=== PATIENT | female | born 1955 | race Caucasian/White ===

== ENCOUNTER 2020-05-24 08:00 | Outpatient (CLI) | payer OTHER, SELFPAY | END 2020-05-24 08:01 | disposition home or self-care (01) | LOC: ANHCOVIDVC 08:00 | PROVIDERS: PCP Family Medicine | DX: Z23 Encounter for immunization (principal) | CPT/HCPCS: 0001A; 91300 ==

== ENCOUNTER 2020-06-14 07:57 | Outpatient (CLI) | payer OTHER, SELFPAY | END 2020-06-14 07:58 | disposition home or self-care (01) | LOC: ANHCOVIDVC 07:57 | PROVIDERS: PCP Family Medicine | DX: Z23 Encounter for immunization (principal) | CPT/HCPCS: 0002A; 91300 ==

== ENCOUNTER 2020-07-25 07:42 | Outpatient (RCR) | payer OTHER, SELFPAY ==
[2020-07-11 09:33] VITALS: BMI 31.8
== END 2020-08-15 10:50 | disposition home or self-care (01) ==
LOC: ANHWOC 07:42
PROVIDERS: PCP Family Medicine; Visit Provider Family Medicine
DX: M79.3 Panniculitis, unspecified (principal); L30.4 Erythema intertrigo
CPT/HCPCS: 99212; A9270; G0463

== ENCOUNTER 2020-08-27 10:30 | Emergency (ER) | payer OTHER, SELFPAY ==
[2020-08-27 10:38] VITALS: BP 146/67; PULSE 77; RESP 16; TEMP 37.1; O2SAT 98
--- NOTE | 2020-08-27 10:55 | ED.URI ---
HPI - URI/Sore Throat General Chief Complaint: Upper Respiratory Infection Stated Complaint: cough/congestion/stuffy nose/eye irritation Time Seen by Provider: 08/27/20 10:43 Source: patient and RN notes reviewed Mode of arrival: ambulatory Limitations: no limitations History of Present Illness HPI Narrative: Patient presents today with a 9-day history of cold symptoms to include sore throat, postnasal drip, dry cough couple days with congestion and sinus pressure. Over the last 2 days she has developed bilateral eye matting and thick drainage from her eyes. She has been using DayQuil, NyQuil, Mucinex, Flonase, and Zyrtec. Denies fever, denies history of COPD and asthma. History of diabetes MD elicited complaint: cough, nasal congestion and sinus pain Related Data Home Medications Medication Instructions Recorded Confirmed Adult Low Dose Aspirin 81 mg PO HS 08/27/20 08/27/20 Allergies Allergy/AdvReac Type Severity Reaction Status Date / Time amoxicillin Allergy Severe rash Verified 08/27/20 10:42 celecoxib Allergy Unknown Skin Verified 08/27/20 10:42 Reaction empagliflozin Allergy Unknown Unknown Verified 08/27/20 10:42 lisinopril Allergy Unknown Cough Verified 08/27/20 10:42 metformin Allergy Unknown Diarrhea Verified 08/27/20 10:42 sitagliptin Allergy Unknown DIARRHEA Verified 08/27/20 10:42 Review of Systems Review of Systems: Narrative: CONSTITUTIONAL: Denies body aches, fever, chills, or sweats. EYES: Denies visual changes, redness, or discharge.+ Bilateral eye matting and drainage ENT: Denies rhinorrhea, or otalgia.+ Congestion, throat, postnasal drip CARDIOVASCULAR: Denies chest pain, palpitations, or edema. RESPIRATORY: Denies dyspnea.+ Dry cough GASTROINTESTINAL: Denies abdominal pain, nausea, vomiting, or diarrhea. GENITOURINARY: Denies dysuria or hematuria. SKIN: Denies rash, itching, or wounds. MUSCULOSKELETAL: Denies back pain, joint pain, or myalgia. NEUROLOGIC: Denies headache, numbness, tingling, or weakness. PSYCH: Denies depression or anxiety. [facility] Family History Family History Father Family history of Alzheimer's disease Mother Family history of diabetes mellitus in first degree relative Patient's mother is Diabetes mellitus Family history of cardiovascular disease Family history of arthritis Family history of malignant neoplasm of breast Family history of malignant neoplasm of kidney Grandparent Hypertension Family history of malignant neoplasm Sibling Malignant neoplasm of prostate Other Cerebrovascular accident Family history of heart disease in male family member before age 55 Family history of kidney stones Social History Social History (Updated 08/13/20 @ 14:39 by Sherron Medellin [facility]) Smoking end date: 03/09/74 Alcohol intake: never Gender identity (if verbalized by the patient): Female Comments At time of signature, I have reviewed and agree with nursing past medical, surgical, social and family history unless otherwise noted. Please see nursing chart for further information. There is no relevant family history pertinent to the presenting complaint Exam Narrative: Exam Narrative: GENERAL: Well-appearing, well-nourished, and in no acute distress. HEAD: Normocephalic, atraumatic. EYES: EOMI. No redness or drainage. Conjunctivae slightly injected bilaterally, otherwise normal. No active drainage. ENT: Mucous membranes pink and moist. Nares congested. No rhinorrhea. TMs normal bilaterally. Throat normal with moderate amount of white postnasal drainage. Uvula midline. NECK: Normal AROM. Supple. No lymphadenopathy. CHEST: No respiratory distress. Clear to auscultation. HEART: Regular rate and rhythm. No murmur appreciated. Normal peripheral pulses. EXTREMITIES: Normal range of motion. No edema. SKIN: Warm, dry, no rash. Capillary refill normal. Normal skin turgor. NEURO: No focal defi
== END 2020-08-27 11:06 | disposition home or self-care (01) ==
PROVIDERS: Emergency Provider Nurse Practitioner; PCP Family Medicine
DX: J01.90 Acute sinusitis, unspecified (principal); E78.00 Pure hypercholesterolemia, unspecified; I10 Essential (primary) hypertension; K21.9 Gastro-esophageal reflux disease without esophagitis; M19.90 Unspecified osteoarthritis, unspecified site
CPT/HCPCS: 99213; G0463

== ENCOUNTER 2020-09-01 11:22 | Outpatient (CLI) | payer OTHER, SELFPAY ==
--- NOTE | ~2020-09-01 | MM_ITS ---
EXAMINATION: MM screening [facility] w [facility] HISTORY: Screening TECHNIQUE: Craniocaudal and mediolateral oblique 3-D tomosynthesis images were obtained and synthetic 2-D images were generated. CAD analysis was submitted and interpreted. COMPARISON: Comparison to multiple prior studies sequentially, with oldest reviewed study dated 11/2014. BREAST PARENCHYMAL COMPOSITION: There are scattered areas of fibroglandular density. FINDINGS: There is no evidence of suspicious mass, calcification, or architectural distortion to sugg est malignancy in either breast. There has been no suspicious interval change. IMPRESSION: 1. No mammographic evidence of malignancy. 2. Recommend routine screening mammography in one year. BI-RADS Category 1: Negative Reviewed, dictated and finalized at location A.
== END 2020-09-01 11:23 | disposition home or self-care (01) ==
LOC: ANHIMG 11:24
PROVIDERS: PCP Family Medicine; Visit Provider Family Medicine
DX: Z12.31 Encounter for screening mammogram for malignant neoplasm of breast (principal)
CPT/HCPCS: 77063; 77067

== ENCOUNTER 2021-01-30 12:43 | Outpatient (CLI) | payer OTHER, SELFPAY ==
--- NOTE | ~2021-01-30 | XR_ITS ---
EXAMINATION: XR lg joint inject/asp w image DATE: 01/30/2021 13:44 INDICATION: Left hip arthritis TECHNIQUE: A time-out was performed to verify the patient's name, date of , and procedure to b e performed. The procedure including the risks, benefits, and alternatives was discussed with the pat ient. Risks discussed included bleeding and infection. The patient understood the risks and agreed to proceed. The skin overlying the left hip joint was prepped and draped in usual sterile fashion. An esthetic was administered with 1% lidocaine subcutaneously. A 22 G needle was advanced under fluoros copic guidance into the joint. Injection of 1 mL of Omnipaque 240 confirmed intra-articular position of the needle. Subsequently, injectate consisting of 3 mL of a 2:1 mixture of 0.5% bupivacaine: 80 mg/mL Depo-Medrol for a total dosage of 80 mg Depo-Medrol was instilled. Washout of contrast was seen confirming intra-articular administration. The needle was removed and the entry site was cleaned and dressed. There were no immediate complications. Fluoroscopy exposure time was 0.1 minutes. The tota l number of images was 2. Total DAP was 0.722 mGycm^2 FINDINGS: Real-time fluoroscopy demonstrates the needle in the left hip joint. Patient's pain prior t o procedure:09/15. Patient's pain following the procedure: 06/16. IMPRESSION: 1. Left hip joint injection of local anesthetic and steroid with decrease in the patient's presenting pain. Reviewed, dictated and finalized at location A. IDE SALES INSPECTOR IMPRESSION: 1. Left hip joint injection of local anesthetic and steroid with decrease in th e patient's presenting pain.
== END 2021-01-30 12:44 | disposition home or self-care (01) ==
LOC: ANHIMG 12:48
PROVIDERS: PCP Family Medicine; Visit Provider Orthopaedic Surgery
DX: M16.12 Unilateral primary osteoarthritis, left hip (principal)
CPT/HCPCS: 20610; 77002; J1040; Q9966

== ENCOUNTER → 2021-02-09 08:08 | Outpatient (CLI) | payer OTHER, SELFPAY ==
[2021-02-09 18:55] LABS: SARS-CoV-2 RNA PCR Negative
== END ==
PROVIDERS: PCP Family Medicine; Visit Provider Physician Assistant Medical
DX: R68.89 Other general symptoms and signs (principal); Z20.822 Contact with and (suspected) exposure to COVID-19
CPT/HCPCS: C9803; U0003; U0005

== ENCOUNTER → 2021-02-15 04:13 | Outpatient (CLI) | payer OTHER, SELFPAY ==
[2021-02-15 19:27] LABS: SARS-CoV-2 RNA PCR Negative
== END ==
PROVIDERS: PCP Family Medicine; Visit Provider Family Medicine
DX: R05.9 Cough, unspecified (principal)
CPT/HCPCS: C9803; U0003; U0005

== ENCOUNTER 2021-03-20 00:25 | Day surgery (SDC) | payer OTHER, SELFPAY ==
--- NOTE | 2021-03-19 13:52 | PM.HPGS ---
History of Present Illness History of Present Illness Consent: Risks, benefits, and alternatives have been discussed and questions answered. Patient agrees to proceed with procedure. Chief complaint: neoplasm screening, hx of colon polyps Narrative: Jihan Villalta is a 65 year old female Who was referred for colon cancer screening. About 6 years ago she had removal of 2 polyps at another institution. Review of Systems Review of Systems: All systems reviewed & are unremarkable except as noted in HPI and below PMFSH Past Medical History Medical History Anxiety and depression Basal cell carcinoma of skin, unspecified Benign neoplasm of colon Breast cancer screening Chronic right hip pain Degenerative joint disease of left hip Diverticulosis of colon (without mention of hemorrhage) Dry eye Dystrophic nail Essential (primary) hypertension Fibromyalgia Glossitis Hip pain, bilateral Intertriginous dermatitis associated with moisture Irritable bowel syndrome with diarrhea Left hip pain Left knee DJD Major depressive disorder, single episode, unspecified Mixed hyperlipidemia Obesity, Class I, BMI 30-34.9 Other specified diabetes mellitus without complications Panniculitis Primary osteoarthritis of both knees Right knee DJD Urge incontinence Vulvitis Family History Family History Father Family history of Alzheimer's disease Mother Family history of diabetes mellitus in first degree relative Patient's mother is Diabetes mellitus Family history of cardiovascular disease Family history of arthritis Family history of malignant neoplasm of breast Family history of malignant neoplasm of kidney Grandparent Hypertension Family history of malignant neoplasm Sibling Malignant neoplasm of prostate Other Cerebrovascular accident Family history of heart disease in male family member before age 55 Family history of kidney stones Social History Social History Smoking status: Never smoker Smoking end date: 03/09/74 Alcohol intake: current Substance use: never Substance use type: does not use Living arrangements: with family Gender identity (if verbalized by the patient): Female Sexual Orientation (if Verbalized by the Patient): Straight or Heterosexual Spiritual care concerns: No Meds Home Medications and Allergies Home Medications Medication Instructions Recorded Confirmed Type blood sugar diagnostic #200 each 12/02/19 02/12/21 Rx blood-glucose meter #1 each 12/02/19 02/12/21 Rx lancets #200 each 12/02/19 02/12/21 Rx meloxicam 15 mg tablet 15 mg PO DAILY #90 tablet 05/14/20 03/06/21 Rx atorvastatin 20 mg tablet 20 mg PO QHS #90 tablet 08/13/20 03/06/21 Rx fluticasone propionate 50 2 spray INTRANASAL DAILY #16 g 08/13/20 03/06/21 Rx mcg/actuation nasal spray,suspension solifenacin 10 mg tablet 10 mg PO DAILY #90 tablet 08/13/20 03/06/21 Rx Adult Low Dose Aspirin 81 mg PO HS 08/27/20 03/06/21 History albuterol sulfate 90 mcg/actuation 2 inh INHALATION Q4H PRN #8.5 g 02/12/21 03/06/21 Rx aerosol inhaler Adult Probiotic 1 cap PO DAILY 03/06/21 03/06/21 History Glucosamine Chondroitin 2 cap PO DAILY 03/06/21 03/06/21 History Hair, Skin, Nails with Biotin 1 cap PO DAILY 03/06/21 03/06/21 History Steglatro 15 mg PO DAILY 03/06/21 03/06/21 History cholecalciferol (vitamin D3) 125 mcg PO DAILY 03/06/21 03/06/21 History [Vitamin D3] famotidine 40 mg PO DAILY 03/06/21 03/06/21 History fluoxetine 40 mg PO DAILY 03/06/21 03/06/21 History gabapentin 600 mg PO HS 03/06/21 03/06/21 History hydrochlorothiazide 25 mg PO DAILY 03/06/21 03/06/21 History glnxu-wy-9-vok-zhk-xdxafiu-ast 1 cap PO DAILY 03/06/21 03/06/21 History [MegaRed [place]-3 Krill Oil] magnesium oxide 400 mg PO DAILY 03/06/21 03/06/21 History mecobalamin (vitamin
[2021-03-20] MEDS: LACTATED RINGERS 1,000 ML 150 ML IV CONT (09:42)
[2021-03-20 09:44] LABS: Glucose Point of Care 134 mg/dl (65-105)
[2021-03-20 09:46] VITALS: BP 111/79; PULSE 84; RESP 18; TEMP 36.1; O2SAT 99
--- NOTE | 2021-03-20 10:24 | WPDANESEPPF ---
Anes - Initial Pre Proc Eval Procedure: Operation Date: 03/20/21 10:30 Proposed Procedures p Screening Colonoscopy - Kimani Hurtado MD Date/Time: 03/20/21 10:24 Surgeon: Kimani Hurtado MD Pre Op Diagnosis: neoplasm screening, hx of colon polyps Patient Data Age: 65 Gender: F Height: 1.7 m Weight: 86.1 kg Last Vital Signs Temp 97 F L 03/20/21 09:46 Pulse 84 03/20/21 09:46 Resp 18 03/20/21 09:46 BP 111/79 03/20/21 09:46 Pulse Ox 99 03/20/21 09:46 Allergies Allergy/AdvReac Type Severity Reaction Status Date / Time amoxicillin Allergy Severe rash Verified 03/20/21 09:44 celecoxib Allergy Intermediate Skin Verified 03/20/21 09:44 Reaction empagliflozin Allergy Intermediate Diarrhea Verified 03/20/21 09:44 lisinopril Allergy Intermediate Cough Verified 03/20/21 09:44 metformin Allergy Intermediate Diarrhea Verified 03/20/21 09:44 sitagliptin Allergy Intermediate DIARRHEA Verified 03/20/21 09:44 Home Medications Medication Instructions Recorded Confirmed Type blood sugar diagnostic #200 each 12/02/19 02/12/21 Rx blood-glucose meter #1 each 12/02/19 02/12/21 Rx lancets #200 each 12/02/19 02/12/21 Rx meloxicam 15 mg tablet 15 mg PO DAILY #90 tablet 05/14/20 03/06/21 Rx atorvastatin 20 mg tablet 20 mg PO QHS #90 tablet 08/13/20 03/06/21 Rx fluticasone propionate 50 2 spray INTRANASAL DAILY #16 g 08/13/20 03/06/21 Rx mcg/actuation nasal spray,suspension solifenacin 10 mg tablet 10 mg PO DAILY #90 tablet 08/13/20 03/06/21 Rx Adult Low Dose Aspirin 81 mg PO HS 08/27/20 03/06/21 History albuterol sulfate 90 mcg/actuation 2 inh INHALATION Q4H PRN #8.5 g 02/12/21 03/06/21 Rx aerosol inhaler Adult Probiotic 1 cap PO DAILY 03/06/21 03/06/21 History Glucosamine Chondroitin 2 cap PO DAILY 03/06/21 03/06/21 History Hair, Skin, Nails with Biotin 1 cap PO DAILY 03/06/21 03/06/21 History Steglatro 15 mg PO DAILY 03/06/21 03/06/21 History cholecalciferol (vitamin D3) 125 mcg PO DAILY 03/06/21 03/06/21 History [Vitamin D3] famotidine 40 mg PO DAILY 03/06/21 03/06/21 History fluoxetine 40 mg PO DAILY 03/06/21 03/06/21 History gabapentin 600 mg PO HS 03/06/21 03/06/21 History hydrochlorothiazide 25 mg PO DAILY 03/06/21 03/06/21 History prbyp-cr-9-jup-vxt-xoideyq-ast 1 cap PO DAILY 03/06/21 03/06/21 History [MegaRed [place]-3 Krill Oil] magnesium oxide 400 mg PO DAILY 03/06/21 03/06/21 History mecobalamin (vitamin B12) 5,000 mcg PO DAILY 03/06/21 03/06/21 History methylcellulose (laxative) 500 mg PO DAILY 03/06/21 03/06/21 History [Citrucel] mupirocin 1 applic TOPICAL TID PRN 03/06/21 03/06/21 History nystatin [Nystop] 1 applic TOPICAL PRN PRN 03/06/21 03/06/21 History pantoprazole 40 mg PO DAILY 03/06/21 03/06/21 History potassium 99 mg PO DAILY 03/06/21 03/06/21 History cetirizine 10 mg tablet 10 mg PO DAILY #90 tablet 03/13/21 Rx losartan 100 mg tablet See Rx Instructions .ROUTE 03/13/21 Rx .COMPLEX #90 tablet mirtazapine 15 mg tablet See Rx Instructions .ROUTE 03/13/21 Rx .COMPLEX #90 tablet cyclobenzaprine 10 mg tablet 10 mg PO TID PRN #30 tablet 03/18/21 Rx pilocarpine HCl 5 mg tablet 5 mg PO TID #90 tablet 03/18/21 Rx Laboratory Tests 03/20/21 09:39 POC Capillary Glucose 134 mg/dl H mg/dl (65-105) Patient hx anesthesia problems: none Family hx anesthesia problems: none Results Review: All pre-operative results and documents have been reviewed as part of the pre-operative evaluation. [facility] Past Medical History Medical History Anxiety and depression Basal cell carcinoma of skin, unspecified Benign neoplasm of colon Breast cancer screening Chronic right hip pain Degenerative joint disease of left hip Diverticulosis of colon (without mention of hemorrhage) Dry eye Dystrophic nail Essential (primary) hypertension Fibromyalgia Glossitis Hip pain, bilateral Intertriginous dermatitis associated with
[2021-03-20 10:50] VITALS: BP 106/66; PULSE 73; RESP 18; O2SAT 98
[2021-03-20 11:00] VITALS: BP 126/74; PULSE 75; RESP 17; O2SAT 100
[2021-03-20 11:10] VITALS: BP 127/75; PULSE 74; RESP 20; O2SAT 100
== END 2021-03-20 11:20 | disposition home or self-care (01) ==
PROVIDERS: PCP Family Medicine; Visit Provider Internal Medicine Gastroenterology
PROC: 0DJD8ZZ Inspection of Lower Intestinal Tract, Via Natural or Artificial Opening Endoscopic (ICD-10-PCS; CPT 45378; principal; 2021-03-20 10:30)
DX: Z12.11 Encounter for screening for malignant neoplasm of colon (principal); K57.30 Diverticulosis of large intestine without perforation or abscess without bleeding; D12.8 Benign neoplasm of rectum; K64.8 Other hemorrhoids; F41.8 Other specified anxiety disorders; I10 Essential (primary) hypertension; M79.7 Fibromyalgia; K58.0 Irritable bowel syndrome with diarrhea; E78.2 Mixed hyperlipidemia; E11.9 Type 2 diabetes mellitus without complications; N39.41 Urge incontinence; Z79.51 Long term (current) use of inhaled steroids; Z79.82 Long term (current) use of aspirin; Z79.84 Long term (current) use of oral hypoglycemic drugs
CPT/HCPCS: 45385; 82948; 88305; J2704; J7120

== ENCOUNTER 2021-03-25 07:56 | Outpatient (CLI) | payer OTHER, SELFPAY ==
--- NOTE | 2021-03-25 08:40 | ECG_ITS ---
Measurements Intervals [place] Rate: 81 P: 13 SC: 169 QRS: -18 QRSD: 93 T: 22 QT: 379 QTc: 442 Interpretive Statements SINUS RHYTHM LOW QRS VOLTAGE IN PRECORDIAL LEADS VOLTAGE CRITERIA FOR LVH BORDERLINE T WAVE ABNORMALITY- INFERIOR LEADS BORDERLINE ECG Electronically Signed On 03-25-2021 9:27:02 AVIATION OPERATIONS SPECIALIST by Benji Augustin D.O.
[2021-03-25 09:37] LABS: Basophils Percent Auto 0.5 % (0.2-1.2); Eosinophils Absolute Auto 0.1 K/mm3 (0-0.3); Eosinophils Percent Auto 1.9 % (0-4.4); Hematocrit 42.4 % (37.0-47.0); Hemoglobin 14.1 g/dL (12.0-15.0); Immature Granulocyte Absolute 0.03 K/mm3 (0.00-0.031); Immature Granulocyte Percent A 0.5 % (0-0.5); Lymphocytes Absolute Auto 1.69 K/mm3 (0.9-3.2); Lymphocytes Percent Auto 29.4 % (18.3-44.2); Mean Corpuscular HGB Conc 33.3 g/dl (32-36); Mean Corpuscular Hemoglobin 28.6 pg (26-34); Mean Platelet Volume 11.2 fl (7.4-10.4); Monocytes Absolute Auto 0.6 K/mm3 (0.1-0.6); Monocytes Percent Auto 10.1 % (2.6-8.5); Neutrophils Absolute Auto 3.3 K/mm3 (1.3-6.7); Neutrophils Percent Auto 57.6 % (45.5-73.1); Platelet Count Result 231 k/mm3 (150-375); Red Blood Count 4.93 M/mm3 (4.2-5.4); Red Cell Distribution Width 14.7 % (11.5-14.5); White Blood Count 5.7 K/mm3 (4.5-10.0)
[2021-03-25 09:47] LABS: Partial Thromboplastin Time 27.5 SECONDS (22.3-36.8); Urine Cotinine NEGATIVE
[2021-03-25 09:48] LABS: Albumin Level 4.3 g/dL (3.5-5.1); Anion Gap 13 mmol/L (8-16); Blood Urea Nitrogen 14 mg/dL (7-17); Calcium 9.1 mg/dL (8.4-10.2); Carbon Dioxide 25 mmol/L (22-30); Chloride 101 mmol/L (98-107); Estimated Glomerular Filt Rate > 60; Glucose 152 mg/dL (65-110); Potassium 3.7 mmol/L (3.4-5.0); Sodium 139 mmol/L (137-145)
[2021-03-25 10:15] LABS: Hemoglobin A1C 6.3 % (<5.7)
[2021-03-25 10:22] LABS: Add Urine Microscopic? YES; Appearance Urine Clear (Clear); Bilirubin Urine Negative (Negative); Blood Urine Negative (Negative); Color Urine Yellow (Yellow); Glucose Urine UA 3+ mg/dL (Negative); Ketones Urine Negative (Negative); Leukocyte Esterase Ur 2+ LEU/UL (Negative); Mucus Urine Rare /lpf; Nitrate Urine Negative (Negative); Protein Urine Negative (Negative); RBC Urine 0-2 /hpf (0-2); Squamous Epithelial Cell Urine Few /hpf (Few); Urobilinogen Urine Negative mg/dL (<2.0); WBC Urine 31-50 /hpf
[2021-03-25 11:11] LABS: Specific Grav Ur 1.032 (1.001-1.035)
== END 2021-03-25 07:57 | disposition home or self-care (01) ==
LOC: ANHSURGERY 08:00
PROVIDERS: PCP Family Medicine; Visit Provider Orthopaedic Surgery
DX: M17.12 Unilateral primary osteoarthritis, left knee (principal); Z01.818 Encounter for other preprocedural examination; R94.31 Abnormal electrocardiogram [ECG] [EKG]
CPT/HCPCS: 80048; 80307; 81001; 82040; 83036; 85025; 85610; 85730; 87081; 87086; 93005

== ENCOUNTER 2021-04-09 00:09 | Day surgery (SDC) | payer OTHER, SELFPAY ==
--- NOTE | 2021-03-25 07:49 | PC.NURSE ---
Report to the Outpatient Waiting Room, entrance under the green pavilion located off [facility], at time _1000_ on date _04/09/21_. OR Time: __1200__. - You and your visitor will be asked a series of questions to screen for COVID 19 for your protection. - A mask is required within the hospital. - NO visitors are allowed at this time. Patient visitors will be guided where to wait when not with patient. Preoperative COVID Testing Requirements: No COVID Test needed if: (proof is required; if not received patient will have Rapid Test prior to entry) - Patient has received COVID Vaccine at least 14 days prior to procedure date or - Patient has positive COVID test result within last 90 days of surgery date. COVID Test needed if above criteria is not met If not COVID vaccinated a COVID test must be conducted within 72 hours of surgery and patient is asked to isolate self from time of testing until procedure. You will go to the [employer] [facility] for your COVID testing. The [employer] [facility] site is located at the corner of [address] [facility]. You will only be called if COVID results are positive and your surgeon may reschedule your elective surgery date. Patients may have clear liquids (water, carbonated beverages, clear teas, apple juice) until 3 hours prior to surgery with a maximum of 20 ounces. (0900 AM) - No food from midnight until time of surgery - Infants may have breast milk until 4 hours before surgery, infant formula 6 hours prior to surgery. - Children will be allowed to drink immediately following surgery. If applicable, please bring a bottle or sippy cup to assist with drinking. Juice, water, soda, and popsicles are readily available. For infants on formula, please bring formula the day of surgery. Pacifiers are allowed. Take the following medications with a SIP of water the morning of surgery: _FLUOXETINE, INHALER IN NEEDED__ Medications to discontinue per DR. ATKINS - _ASPIRIN, MELOXICAM INSTRUCTED - ASK @ 03/25/21 APPT _ Medications to discontinue per ANESTHESIA - _ALL VITAMINS & SUPPLEMENTS - 3 DAYS PRIOR TO SURGERY, LAST DOSE TO BE TAKEN ON 04/05/21__ Please no make-up, nail eritrean, hairspray, perfume, deodorant, or body powder the day of surgery. No jewelry (including any body piercings) or valuables the day of surgery, leave them at home. Please take a shower or bath the night before, or the morning of, surgery with an antibacterial soap. Wear comfortable, loose fitting clothing. Children are encouraged to wear pajamas. - Jewelry must be removed prior to entering the operating room. Rings and piercings that are not removed may be cut off. - The hospital will not accept responsibility for valuables. - Please leave all valuables, including medications, at home the day of surgery. If you are going home after surgery, a licensed wood pile driver operator must drive you home. - NO public transportation without another adult. - We recommend that an adult stay with you for 24 hours following discharge. - We also recommend that you do not drive, make important decision, drink alcoholic beverages, or take any drugs that were not prescribed by your health care provider for at least 24 hours after your discharge time. For Pediatric surgeries, we recommend two adults accompany the child home (only one inside the building at this time). Follow any additional instructions given to you from your surgeon. Telephone instructions given to ___PT and asked if any additional questions and then verbalized understanding. Patient advised to call surgeon office or pre surgery nurse liaison [phone] if any additional questions.
[2021-03-25 08:24] VITALS: BP 124/76; PULSE 88; RESP 20; TEMP 37.3; O2SAT 96; BMI 32.1
[2021-04-09] VITALS (14 sets, daily range): BP systolic 98–144; BP diastolic 55–81; PULSE 75–91; RESP 12–18; TEMP 36.3–37.3; O2SAT 93–97
--- NOTE | ~2021-04-09 | XR_ITS ---
EXAMINATION: XR knee LT 2V EXAM DATE: 04/09/2021 17:10 INDICATION: Left knee total arthroplasty. TECHNIQUE: Portable frontal, crosstable lateral projections left knee obtained immediately following arthroplasty performed by orthopedic surgeon Julito Hearn MD. FINDINGS: Patient is status post total knee arthroplasty. The orthopedic hardware is in expected po sition. There are oscar overlying the anterior aspect of the knee. There is small amount of subcu taneous gas, gas within the knee joint space. Overlying soft tissue swelling. Correlate with proced ure note. IMPRESSION: Status post total left knee arthroplasty. Reviewed, dictated and finalized at location G. ICAL SAFETY MANAGER
[2021-04-09] MEDS: ACETAMINOPHEN 500 MG TABLET 1000 MG PO (10:04)
[2021-04-09 10:22] LABS: Glucose Point of Care 120 mg/dl (65-105)
[2021-04-09] MEDS: LACTATED RINGERS 1,000 ML 30 ML IV CONT ×2 (10:24→16:48)
[2021-04-09] MEDS: TRANEXAMIC ACID 1,000MG/ISO100 1,000 MG/100 ML BAG 200 MG IVPB (10:52)
--- NOTE | 2021-04-09 12:20 | WPDANESEPPF ---
Anes - Initial Pre Proc Eval Procedure: Operation Date: 04/09/21 12:00 Proposed Procedures p Left Total Knee Arthroplasty, Right Knee Cortisone Injection - Julito Hearn MD Date/Time: 04/09/21 12:20 Surgeon: Julito Hearn MD Pre Op Diagnosis: left knee djd, Rt knee DJD Patient Data Age: 65 Gender: F Height: 1.65 m Weight: 87.3 kg Last Vital Signs Temp 37.3 C 04/09/21 10:33 Pulse 77 04/09/21 10:33 Resp 16 04/09/21 10:33 BP 131/67 04/09/21 10:33 Pulse Ox 97 04/09/21 10:33 Allergies Allergy/AdvReac Type Severity Reaction Status Date / Time amoxicillin Allergy Severe rash Verified 04/09/21 09:59 celecoxib Allergy Intermediate Skin Verified 04/09/21 09:59 Reaction empagliflozin Allergy Intermediate Diarrhea Verified 04/09/21 09:59 lisinopril Allergy Intermediate Cough Verified 04/09/21 09:59 metformin Allergy Intermediate Diarrhea Verified 04/09/21 09:59 sitagliptin Allergy Intermediate DIARRHEA Verified 04/09/21 09:59 Home Medications Medication Instructions Recorded Confirmed Type blood sugar diagnostic #200 each 12/02/19 02/12/21 Rx blood-glucose meter #1 each 12/02/19 02/12/21 Rx lancets #200 each 12/02/19 02/12/21 Rx meloxicam 15 mg tablet 15 mg PO DAILY #90 tablet 05/14/20 04/09/21 Rx atorvastatin 20 mg tablet 20 mg PO QHS #90 tablet 08/13/20 03/25/21 Rx fluticasone propionate 50 2 spray INTRANASAL DAILY #16 g 08/13/20 03/25/21 Rx mcg/actuation nasal spray,suspension solifenacin 10 mg tablet 10 mg PO DAILY #90 tablet 08/13/20 03/25/21 Rx Adult Low Dose Aspirin 81 mg PO HS 08/27/20 03/25/21 History albuterol sulfate 90 mcg/actuation 2 inh INHALATION Q4H PRN #8.5 g 02/12/21 03/25/21 Rx aerosol inhaler Adult Probiotic 1 cap PO DAILY 03/06/21 03/25/21 History Citrucel 500 mg PO DAILY 03/06/21 03/25/21 History Glucosamine Chondroitin 2 cap PO DAILY 03/06/21 03/25/21 History Hair, Skin, Nails with Biotin 1 cap PO DAILY 03/06/21 03/25/21 History Steglatro 15 mg PO DAILY 03/06/21 03/25/21 History cholecalciferol (vitamin D3) 125 mcg PO DAILY 03/06/21 03/25/21 History [Vitamin D3] famotidine 40 mg PO DAILY 03/06/21 03/25/21 History fluoxetine 40 mg PO DAILY 03/06/21 04/09/21 History gabapentin 600 mg PO HS 03/06/21 03/25/21 History hydrochlorothiazide 25 mg PO DAILY 03/06/21 03/25/21 History bkjwr-fy-2-wcu-mel-ysxoyfr-ast 1 cap PO DAILY 03/06/21 03/25/21 History [MegaRed [place]-3 Krill Oil] magnesium oxide 400 mg PO DAILY 03/06/21 03/25/21 History mecobalamin (vitamin B12) 5,000 mcg PO DAILY 03/06/21 03/25/21 History nystatin [Nystop] 1 applic TOPICAL PRN PRN 03/06/21 03/25/21 History pantoprazole 40 mg PO DAILY 03/06/21 03/25/21 History potassium 99 mg PO DAILY 03/06/21 03/25/21 History cetirizine 10 mg tablet 10 mg PO DAILY #90 tablet 03/13/21 03/25/21 Rx cyclobenzaprine 10 mg tablet 10 mg PO TID PRN #30 tablet 03/18/21 03/25/21 Rx pilocarpine HCl 5 mg tablet 5 mg PO TID #90 tablet 03/18/21 03/25/21 Rx losartan 100 mg HS 03/25/21 03/25/21 History mirtazapine 15 mg HS 03/25/21 03/25/21 History Laboratory Tests 04/09/21 04/09/21 10:15 10:20 POC Capillary Glucose 120 mg/dl H mg/dl (65-105) Blood Type A Positive Antibody Screen Negative Patient hx anesthesia problems: none Family hx anesthesia problems: none Results Review: All pre-operative results and documents have been reviewed as part of the pre-operative evaluation. COUNT INCLUDES THE [facility] Past Medical History Medical History Anxiety and depression Basal cell carcinoma of skin, unspecified Benign neoplasm of colon Breast cancer screening Chronic right hip pain Degenerative joint disease of left hip Diverticulosis of colon (without mention of hemorrhage) Dry eye Dystrophic nail Essential (primary) hypertension Fibromyalgia Glossitis Hip pain, bilateral Intertriginous dermatitis associated with moisture Irritable bowel syndrome with d
--- NOTE | 2021-04-09 12:23 | WPDHPUPDATE1 ---
History and Physical Update Update Date/Time: 04/09/21 12:23 History and Physical has been reviewed, including an updated exam of the patient. There are NO changes in the patient's condition. Risks, benefits, and alternatives have been discussed and questions answered. Patient agrees to proceed with procedure.
--- NOTE | 2021-04-09 12:40 | WPDANESPNB ---
Anes - Peripheral Nerve Block Date/Time: 04/09/21 12:40 I have discussed with the patient/family/POA the placement of a peripheral nerve block for post-operative pain management, including associated risks, benefits, complications, and side effects. Alternative methods of post-operative analgesia were detailed. Questions were solicited and answers provided to the satisfaction of the patient/family/POA. Time-Out: A pre-procedural Time-Out was completed immediately before starting the procedure and confirmed: Patient Identification, Site, Procedure, Patient Position and the Availability of Requisite Equipment. Clinical Indications: Acute post-operative pain management requested by the operative surgeon. Nerve Block Insertion Note Anes-nerve block: adductor canal left Patient position: supine Needle: 22 gauge, stimulating, insulated echogenic needle. Needle length: 80 mm Technique: ultrasound Injectate: bupivacaine 0.5% with epi 5 mcg/ml (30) and dexamethasone (mg) (8) Observations: tolerated well Complications: none Procedure start time:: 1235 Procedure end time:: 1240
[2021-04-09] MEDS: ceFAZolin 2 GM/D5W 50 ML 2 GM/50 ML BAG IVPB ×2 (12:55→20:47)
[2021-04-09] MEDS: TRANEXAMIC ACID 1,000 MG/10 ML AMPUL 1000 MG IV PUSH (15:34)
--- NOTE | 2021-04-09 16:43 | WPDHPUPDATE1 ---
History and Physical Update Update Date/Time: 04/09/21 16:43 History and Physical has been reviewed, including an updated exam of the patient. There are NO changes in the patient's condition. Risks, benefits, and alternatives have been discussed and questions answered. Patient agrees to proceed with procedure. We also discussed the right knee djd and her request for a cortisone injection. she consented to this as well. we will proceed.
[2021-04-09 16:56] LABS: Glucose Point of Care 199 mg/dl (65-105)
[2021-04-09] MEDS: fentaNYL CITRATE INJ (*CRX) 100 MCG/2 ML VIAL 25 MCG IV PUSH ×7 (17:03→17:34)
--- NOTE | 2021-04-09 17:11 | SUR.PHASEI ---
1708 DR ATKINS AT BEDSIDE IN PACU. RT KNEE INJECTED WITH 1% LIDOCAINE HCL 5ML AND DEPOMEDROL 80MG 1ML.
--- NOTE | 2021-04-09 17:12 | W.PM.PROC2 ---
Procedure Note - Detailed Date of Procedure 04/09/21 Pre-op Diagnosis left knee djd, Rt knee DJD Post-op Diagnosis same Procedure Performed L TKA WITH PATELLA RESURFACING, RIGHT KNEE INJECTION Surgeon Julito Hearn MD Anesthesia general Description of Procedure THE LEFT KNEE WAS PREPPED AND DRAPED IN THE STERILE FASHION. THERE WAS A 10 DEGREE FLEXION CONTRACTURE. A MIDLINE SKIN INCISION WAS MADE. A MEDIAL PARAPATELLAR ARTHROTOMY WAS MADE. THE PATELLA WAS EVERTED. THERE WAS TRICOMPARTMENT DJD. THERE WAS MINIMAL PATELLA DJD. AN INTRAMEDULLARY DILIA WAS PLACED IN THE FEMUR. A DISTAL FEMORAL CUT WAS MADE IN 5 DEGREES OF VALGUS REMOVING APPROXIMATELY 9 MM OF BONE FROM THE DISTAL FEMUR. THE FEMUR WAS SIZED TO 65. A 65 FEMORAL CUTTING BLOCK WAS PLACED IN 3 DEGREES OF EXTERNAL ROTATION AND IN ALIGNMENT WITH PHIL'S LINE AND THE TRANSEPICONDYLAR AXIS. ANTERIOR POSTERIOR AND CHAMFER CUTS WERE MADE. THE CUTS WERE EXCELLENT. NEXT AN INTRAMEDULLARY CUTTING GUIDE WAS PLACED IN THE TIBIA. A TRANS TIBIAL CUT WAS MADE ALONG THE LONG AXIS OF THE TIBIA. APPROXIMATELY 10 MM OF BONE WAS REMOVED FROM THE HIGH SIDE OF THE TIBIA. THE TIBIA WAS THEN PLANED TO A SMOOTH SURFACE. POSTERIOR FEMORAL OSTEOPHYTES WERE REMOVED FROM THE FEMORAL CONDYLES. A 71 TIBIAL TRIAL WAS PLACED IN ALIGNMENT WITH THE 1/3 MEDIAL ASPECT OF THE TIBIAL TUBERCLE. THEN A 65 FEMORAL TRIAL COMPONENT WAS PLACED. BOTH HAD EXCELLENT FITS. EVENTUALLY A 12 MM POLYETHYLENE TRIAL COMPONENT WAS PLACED. THE PATELLA THEN WAS RESURFACED MAKING A 5 MM CUT OFF OF THE PATELLA SURFACE IN THE STANDARD FASHION THEN A 31 BY 6.8 PATELLA TRIAL WHICH WAS PLACED AND MEDIALIZED ON THE PATELLA. THE KNEE WAS TAKEN THROUGH A RANGE OF MOTION. THE KNEE CAME OUT TO FULL EXTENSION. THERE WAS NO ABNORMAL TILT TO THE PATELLA. THERE WAS GOOD A/P AND VARUS/VALGUS STABILITY. THERE WAS NO EXCESSIVE ROLL BACK WITH FLEXION. THE TRIAL COMPONENTS WERE REMOVED. THEN A 65 FEMORAL COMPONENT AND 71 TIBIAL COMPONENT WITH A 12 POLYETHYLENE AND A 31 BY 6.8 PATELLA COMPONENT WERE CEMENTED INTO PLACE. ONCE THE CEMENT WAS HARD THE KNEE WAS TAKEN THROUGH A ROM AGAIN AND FOUND TO BE STABLE WITH NO PATELLA TILT NO EXCESSIVE ROLL BACK WITH FLEXION AND GOOD STABILITY WITH COMPLETE AND FULL EXTENSION. THE KNEE WAS IRRIGATED WITH STERILE BETADINE AND WATER FOR ABOUT 3 MINUTES. THE BLEEDERS WERE CAUTERIZED. THE ARTHROTOMY WAS REPAIRED WITH NUMBER 1 VICRYL. THE SUB CUTANEOUS LAYER WITH 2-0 VICRYL AND THE SKIN WITH GABRIEL. THE WOUND WAS WASHED AND A STERILE DRESSING WAS APPLIED. PATIENT WAS EXTUBATED. ONCE SHE WAS ALERT AND ORIENTED THE RIGHT KNEE WAS PREPPED STERILE AND AN INJECTION OF 5 CC OF LIDOCAINE 1% AND 1 CC OF DEPO MEDROL 80 MG WAS INJECTED INTO THE RIGHT KNEE JOINT. THE PATIENT TOLERATED BOTH PROCEDURES WELL. Estimated Blood Loss -150.0 Pathology none sent Complications No immediate complications Condition stable Disposition PACU
[2021-04-09] MEDS: HYDROmorphone HCL INJ (*CRX) 1 MG/ML SYR 0.5 MG IV PUSH ×2 (17:57→18:07)
--- NOTE | 2021-04-09 18:30 | PC.NURSE ---
This patient, Jihan Villalta, was admitted to [place] [address] at 1830. Patient oriented to hospital policies and general routines including ID bracelet, bed and alarms, visiting hours, pain management, procedures, bathroom and other care routines, personal items, smoking policy, room service/diet, and visiting hours. Information on how to activate the Rapid Response Team has been discussed. Patient encouraged to report perceived risks to care and to ask questions if they do not understand what they are told or what they should do.
[2021-04-09] MEDS: SODIUM CHLORIDE 0.9% IV 1,000 ML 125 ML IV CONT (18:43)
[2021-04-09] MEDS: LOSARTAN POTASSIUM 100 MG TABLET BY MOUTH (20:46)
[2021-04-09] MEDS: ASPIRIN 325 MG ENTERIC TABLET PO (20:46)
[2021-04-09] MEDS: ATORVASTATIN 20 MG TABLET PO (20:47)
[2021-04-09] MEDS: oxyCODONE/ACETAMINOPHEN (*CRX) 5-325 MG TABLET 1 TABLET PO (20:57)
[2021-04-09] MEDS: MIRTAZAPINE 15 MG TABLET BY MOUTH (21:54)
[2021-04-09 21:57] LABS: Glucose Point of Care 184 mg/dl (65-105)
[2021-04-10] MEDS: oxyCODONE/ACETAMINOPHEN (*CRX) 5-325 MG TABLET 1 TABLET PO (01:53)
[2021-04-10] MEDS: ceFAZolin 2 GM/D5W 50 ML 2 GM/50 ML BAG IVPB ×2 (04:04→12:04)
[2021-04-10 04:11] VITALS: BP 90/53; PULSE 72; RESP 16; TEMP 36.4; O2SAT 92
[2021-04-10 05:30] LABS: Basophils Percent Auto 0.2 % (0.2-1.2); Hematocrit 32.3 % (37.0-47.0); Hemoglobin 10.8 g/dL (12.0-15.0); Immature Granulocyte Absolute 0.04 K/mm3 (0.00-0.031); Immature Granulocyte Percent A 0.3 % (0-0.5); Lymphocytes Absolute Auto 1.17 K/mm3 (0.9-3.2); Lymphocytes Percent Auto 10.2 % (18.3-44.2); Mean Corpuscular HGB Conc 33.4 g/dl (32-36); Mean Corpuscular Hemoglobin 29.1 pg (26-34); Mean Corpuscular Volume 87.1 fl (80-100); Mean Platelet Volume 10.7 fl (7.4-10.4); Monocytes Percent Auto 8.9 % (2.6-8.5); Neutrophils Absolute Auto 9.3 K/mm3 (1.3-6.7); Neutrophils Percent Auto 80.4 % (45.5-73.1); Platelet Count Result 169 k/mm3 (150-375); Red Blood Count 3.71 M/mm3 (4.2-5.4); Red Cell Distribution Width 14.5 % (11.5-14.5); White Blood Count 11.5 K/mm3 (4.5-10.0)
[2021-04-10 05:37] LABS: Anion Gap 3 mmol/L (8-16); Blood Urea Nitrogen 17 mg/dL (7-17); Calcium 8.4 mg/dL (8.4-10.2); Carbon Dioxide 28 mmol/L (22-30); Chloride 105 mmol/L (98-107); Estimated CRCL calculation 76 ml/min; Estimated Glomerular Filt Rate > 60; Glucose 122 mg/dL (65-110); Potassium 3.1 mmol/L (3.4-5.0); Sodium 136 mmol/L (137-145)
[2021-04-10] MEDS: oxyCODONE HCL (*CRX) 2.5 MG TAB IR 7.5 MG PO ×2 (07:56→12:20)
[2021-04-10 08:07] LABS: Glucose Point of Care 125 mg/dl (65-105)
[2021-04-10 08:29] VITALS: BP 94/54; PULSE 77; RESP 16; TEMP 36.6; O2SAT 99
[2021-04-10] MEDS: ASPIRIN 325 MG ENTERIC TABLET PO (09:41)
[2021-04-10] MEDS: SENNA/DOCUSATE SODIUM TABLET 2 TAB PO (09:42)
[2021-04-10] MEDS: CHOLECALCIFEROL 1,000 UNITS TABLET 5000 UNITS PO (09:42)
[2021-04-10] MEDS: FAMOTIDINE 20 MG TABLET 40 MG PO (09:43)
[2021-04-10] MEDS: FLUTICASONE PROPIONATE 0.05% NA SPR 16 GM BTL (*BKC) 2 SPRAY NASAL (09:45)
[2021-04-10] MEDS: FLUoxetine HCL 20 MG CAPSULE 40 MG PO (09:45)
[2021-04-10] MEDS: hydroCHLOROthiazide 25 MG TABLET PO (09:45)
[2021-04-10] MEDS: PANTOPRAZOLE 40 MG TABLET PO (09:46)
[2021-04-10] MEDS: LORATADINE 10 MG TABLET PO (09:46)
[2021-04-10] MEDS: diazePAM (*CRX) 5 MG TABLET PO (09:55)
--- NOTE | 2021-04-10 10:03 | PC.NURSE ---
LEFT MESSAGE FOR PHARMACIST REGARDING MISSING MEDS
[2021-04-10] MEDS: SOLIFENACIN 5 MG TABLET 10 MG PO (12:05)
--- NOTE | 2021-04-10 12:20 | PC.NURSE ---
DR ATKINS CALLED. HE WROTE FOR DISCHARGE ORDERS. NOTIFIED HIM OF PT WALKING WITH THERAPIST THIS AM AND HEARD AND FELT A POP IN THE KNEE WITH INCREASED PAIN. OXYCODONE DID HELP PT. DR ATKINS STATES PT MAY GO HOME TODAY.
[2021-04-10 13:21] LABS: Glucose Point of Care 108 mg/dl (65-105)
--- NOTE | 2021-04-10 14:19 | PC.NURSE ---
PT AWAKE AND ALERT. STATES PAIN 09/15. PT ATE FULL LUNCH. STATES SHE IS READY TO GO HOME.
[2021-04-10 14:25] VITALS: BP 109/61; PULSE 87; RESP 18; TEMP 37.3; O2SAT 96
--- NOTE | 2021-04-10 15:02 | PC.NURSE ---
PT IS DRESSED AND PACKED. READY FOR DISCHARGE. WAITING ON RIDE TO ARRIVE, WEATHER IS SNOWY, WILL TAKE SOME TIME PER PT.
--- NOTE | 2021-04-10 16:01 | PC.NURSE ---
1350; PT AWAKE AND ALERT. RIDE HERE. PT PACKED AND READY. STATES PAIN 10/16. ASKED PT IF SHE WANTED TO STAY DUE TO PAIN, PT STATES NO, SHE IS READY TO GO HOME.
== END 2021-04-10 15:55 | disposition home health service (06) ==
LOC: ANHSURGERY 17:39 → ANHSUROVER 04-10 10:28
PROVIDERS: PCP Family Medicine; Visit Provider Orthopaedic Surgery
PROC: (CPT 27447; principal; 2021-04-09 12:00)
DX: M17.0 Bilateral primary osteoarthritis of knee (principal); G89.18 Other acute postprocedural pain; I10 Essential (primary) hypertension; E11.9 Type 2 diabetes mellitus without complications; F41.8 Other specified anxiety disorders; M79.7 Fibromyalgia; K58.0 Irritable bowel syndrome with diarrhea; E78.2 Mixed hyperlipidemia; Z87.891 Personal history of nicotine dependence; E66.9 Obesity, unspecified; Z68.32 Body mass index [BMI] 32.0-32.9, adult; Z79.51 Long term (current) use of inhaled steroids; Z79.82 Long term (current) use of aspirin; Z79.84 Long term (current) use of oral hypoglycemic drugs
CPT/HCPCS: 27447; 20610; 64447; 36415; 73560; 80048; 82948; 85025; 86850; 86900; 86901; 97110; 97116; 97161; 97165; 97530; A9270; C1713; C1776; J0171; J0690; J1040; J1100; J1170; J1885; J2250; J2270; J2795; J3010; J3370; J7030; J7120

== ENCOUNTER 2021-06-11 09:30 | Outpatient (RCR) | payer OTHER, SELFPAY ==
--- NOTE | 2021-05-07 13:28 | PTOPEVAL ---
PHYSICAL THERAPY EVALUATION AND PLAN OF CARE Thank you for referring Jihan Villalta to [facility].? The patient is scheduled to be seen for therapy? _2x/week for 3 weeks. Please review, sign, date and return this plan of care TROY. I agree with and certify that the following plan of care is medically necessary. Referring Physician Date Attending Provider: Julito Hearn MD Evaluation Outpatient Past Medical History Neurological History Hx Neurological Disorders No Significant History Cardiovascular History Hx Hypercholesterolemia Yes Hx Hypertension Yes Respiratory History Hx Bronchitis Yes: TRIGGERED BY ALLERGIES Hx Pneumonia Yes Hx Other Respiratory Disorders Yes: PRN inhaler if she gets bronchitis Gastrointestinal History Hx Diverticulitis Yes Hx Diverticulosis Yes Hx Gastroesophageal Reflux Disease Yes Hx Polyps Yes Genitourinary History Hx Kidney Stones Yes Hx Other Genitourinary Disorders Yes: urge incontinence-takes medications Musculoskeletal History Hx Back Pain Yes Hematological History Hx Hematological Disorders No Significant History Endocrine History Hx Diabetes Yes: last A1C 6.0 05/04/20, PRE -DM HEENT History Hx Other HEENT Disorders Yes: GLASSES Integumentary History Hx Other Skin Disorders Yes: PT STATES OCCASIONAL RASH TO SKIN FOLD OF ABD-CLEAR AT THIS TIME PER PT Reproductive History Hx Section Yes: X2 Hx Post Menopausal Yes Psychosocial History Hx Depression Yes Pain History Has Past Pain Affected Your Daily Life Yes: GENERALIZED ALL OVER- KNEES, HIPS AND BACK Anesthesia History Hx Post-Op Nausea/Vomiting Yes Other History Hx Cancer Yes: basal cell skin cancer removed Diagnosis left TKA Onset 04/09/21 Subjective Information Participated in home health Query Text:As Reported By Patient/ therapy immediately after Family surgery. States she has experienced a couple of loud painful pops in the back and lateral side of the knee that the surgeon is aware of stating it is scar tissue. States that the swelling is also bothersome. Walking with a walker today and brought a cane to use. Tells me that she
--- NOTE | 2021-06-11 10:05 | PTOPEVAL ---
PHYSICAL THERAPY DISCHARGE NOTE Thank you for referring Jihan Villalta to [facility]. Please review, sign, date and return this plan of care TROY. I agree with and certify that the following plan of care is medically necessary. Referring Physician Date Attending Provider: Julito Hearn MD Discharge Diagnosis left TKA Onset 04/09/21 Subjective Information Came back from vacation to the Query Text:As Reported By Patient/ beach. States that she did Family experience swelling at the end of the day and she had increased pain at the end of the day. She is 9 wks post op today. Self Report Pain Assessment Left Knee(s) Reported Pain Level 4 Pain Description Aching Pain Frequency Acute,Continuous Pain Score Pain Score 4: Self Report Interventions Used Interventions Used By Clinicians Exercise Lower Extremity Range of Motion Knee Range of Motion Left Knee Flexion Range of Motion - Active 128 Knee Extension Range of Motion - Active 0 Query Text: Lower Extremity Muscle Strength Testing Hip Strength Left Hip Flexion Strength 5 Normal Hip Abduction Strength 5 Normal Knee Strength Left Knee Flexion Strength 4 Good Knee Extension Strength 5 Normal Gait Assessment Gait Pattern Assessment Gait Pattern No Deviations/Normal Other Gait Observations slow and thoughtful gait pattern; normal mechanics Stair Climbing Assessment Stair Climbing Assessment Stair Climbing Assistive Devices Railings Weight Bearing Status - Left Full Weight Bearing Status - Right Full Maintains Weight Bearing Status Yes Technique Alternating Steps Stair Climbing Direction Both Up and Down Stair Climbing Ability Independent PT Clinical Summary Jihan is now 9 weeks s/p left TKA. She demonstrates normal knee ROM and good quad strength. She does have some weakness to the left hamstring and we discussed exercises to continue strengthening and why strengthening is important for further progress. She is independent in gait, stair climbing, and functional tasks and independent in HEP. She does have a small scab that persists mid incision site.
== END 2021-06-12 11:03 | disposition home or self-care (01) ==
LOC: ANHPT 09:30
PROVIDERS: PCP Family Medicine; Visit Provider Orthopaedic Surgery
DX: Z47.1 Aftercare following joint replacement surgery (principal); Z96.652 Presence of left artificial knee joint
CPT/HCPCS: 97110; 97112; 97140; 97162; 97530

== ENCOUNTER 2021-07-08 10:39 | Outpatient (CLI) | payer OTHER, SELFPAY ==
--- NOTE | ~2021-07-08 | XR_ITS ---
EXAMINATION: XR lg joint inject/asp w image DATE: 07/08/2021 11:38 INDICATION: Left hip arthritis TECHNIQUE: A time-out was performed to verify the patient's name, date of , and procedure to b e performed. The procedure including the risks, benefits, and alternatives was discussed with the pat ient. Risks discussed included bleeding and infection. The patient understood the risks and agreed to proceed. The skin overlying the left hip joint was prepped and draped in usual sterile fashion. An esthetic was administered with 1% lidocaine subcutaneously. A 22 G needle was advanced under fluoros copic guidance into the joint. Injection of 1 mL of Omnipaque 240 confirmed intra-articular position of the needle. Subsequently, injectate consisting of 4 mL of a 1:1 mixture of 40 mg/mL Depo-Medrol and 0.5% bupivacaine for a total dose of 80 mg Depo-Medrol was instilled. Washout of contrast was see n confirming intra-articular administration. The needle was removed and the entry site was cleaned an d dressed. There were no immediate complications. Fluoroscopy exposure time was 0.1 minutes. The tot al number of images was 2. FINDINGS: Real-time fluoroscopy demonstrates the needle in the left hip joint. Patient's pain prior t o procedure:09/15. Patient's pain following the procedure: 06/16. IMPRESSION: 1. Successful left hip joint injection of local anesthetic and steroid with decrease in the patient's presenting pain. Reviewed, dictated and finalized at location A. IMPRESSION: 1. Successful left hip joint injection of local anesthetic and steroid with dec rease in the patient's presenting pain.
== END 2021-07-08 10:40 | disposition home or self-care (01) ==
PROVIDERS: PCP Family Medicine; Visit Provider Orthopaedic Surgery
DX: M16.12 Unilateral primary osteoarthritis, left hip (principal)
CPT/HCPCS: 20610; 77002; J1030; Q9966

== ENCOUNTER 2021-10-22 09:53 | Outpatient (CLI) | payer MEDICARE, SELFPAY ==
[2021-10-22 11:41] LABS: Basophils Percent Auto 0.4 % (0.2-1.2); Eosinophils Absolute Auto 0.1 K/mm3 (0-0.3); Eosinophils Percent Auto 1.2 % (0-4.4); Hematocrit 40.7 % (37.0-47.0); Immature Granulocyte Absolute 0.03 K/mm3 (0.00-0.031); Immature Granulocyte Percent A 0.4 % (0-0.5); Lymphocytes Absolute Auto 1.66 K/mm3 (0.9-3.2); Lymphocytes Percent Auto 22.9 % (18.3-44.2); Mean Corpuscular HGB Conc 31.9 g/dl (32-36); Mean Corpuscular Hemoglobin 27.9 pg (26-34); Mean Corpuscular Volume 87.3 fl (80-100); Monocytes Absolute Auto 0.7 K/mm3 (0.1-0.6); Neutrophils Absolute Auto 4.8 K/mm3 (1.3-6.7); Neutrophils Percent Auto 66.1 % (45.5-73.1); Platelet Count Result 261 k/mm3 (150-375); Red Blood Count 4.66 M/mm3 (4.2-5.4); White Blood Count 7.2 K/mm3 (4.5-10.0)
[2021-10-22 11:43] LABS: Urine Cotinine NEGATIVE
[2021-10-22 11:45] LABS: Prothrombin Time 12.8 Seconds (11.1-14.7)
[2021-10-22 11:46] LABS: Partial Thromboplastin Time 26.4 SECONDS (22.3-36.8)
[2021-10-22 11:48] LABS: Appearance Urine Clear (Clear); Bilirubin Urine Negative (Negative); Blood Urine Negative (Negative); Color Urine Yellow (Yellow); Glucose Urine UA 3+ mg/dL (Negative); Ketones Urine Trace mg/dL (Negative); Leukocyte Esterase Ur Negative LEU/UL (Negative); Nitrate Urine Negative (Negative); Protein Urine Trace mg/dL (Negative); Specific Grav Ur 1.025 (1.001-1.035); Urobilinogen Urine 0.2 mg/dL (<2.0)
[2021-10-22 11:48] LABS: Albumin Level 4.6 g/dL (3.5-5.1); Anion Gap 10 mmol/L (8-16); Blood Urea Nitrogen 18 mg/dL (7-17); Calcium 9.1 mg/dL (8.4-10.2); Carbon Dioxide 27 mmol/L (22-30); Chloride 103 mmol/L (98-107); Estimated Glomerular Filt Rate > 60; Glucose 121 mg/dL (65-110); Potassium 4.2 mmol/L (3.4-5.0); Sodium 140 mmol/L (137-145)
[2021-10-22 11:59] LABS: Mucus Urine Rare /lpf; Squamous Epithelial Cell Urine Rare /hpf (Few)
[2021-10-22 12:03] LABS: Add Urine Microscopic? YES
== END 2021-10-22 09:54 | disposition home or self-care (01) ==
LOC: ANHSURGERY 10:06
PROVIDERS: PCP Family Medicine; Visit Provider Orthopaedic Surgery
DX: M16.12 Unilateral primary osteoarthritis, left hip (principal); Z01.818 Encounter for other preprocedural examination
CPT/HCPCS: 80048; 80307; 81001; 82040; 85025; 85610; 85730; 86850; 86900; 86901; 87081

== ENCOUNTER 2021-10-25 09:44 | Outpatient (CLI) | payer MEDICARE, SELFPAY ==
--- NOTE | 2021-10-25 09:50 | EST_ITS ---
Patient Info Name: Jihan Villalta Age: 66 years : 1955 Gender: Female Ht: 65 in Wt: 202 lbs BSA: 2.09 m2 HR: 86 bpm BP: 133 / 65 mmHg Heart Rhythm: Sinus Rhythm Exam Date: 10/25/2021 10:30 AM Exam Location: [facility] Stress Patient Status: Outpatient Admit Date: 10/25/2021 Staff Ordering Physician: Gael Soriano MD Mortgage Banker: Megan Huff RDCS Attending Provider: Gael Soriano MD Exam Type: CA stress echo Study Info Indications R06.00 - Dyspnea, unspecified Treadmill exercise stress echocardiogram is performed. Summary 1. 1. Negative Mychal exercise stress test for ischemic ST changes by ECG criteria. 2. 2. Reduced functional capacity, achieving 7 METs of workload. 3. 3. Hypertensive response to exercise. 4. 4. Appropriate HR response to exercise. 5. 5. Appropriate HR recovery at 1 minute post exercise. 6. 6. Negative stress echocardiogram for ischemia by wall motion analysis. 7. 7. Patient informed of the above results. Stress Echo Findings Left Ventricle Appropriate increase in LV endocardial thickening with systole. Appropriate augmentation of contractility with systole. No wall motion abnormality. Left Ventricle Normal LV systolic function, no wall motion abnormality. Protocol: Mychal Stress ECG Details Stage: REST Duration (min): 0 min : 56 sec Speed (mph): 0.0 Grade (%): 0 HR (bpm): 87 SBP (mmHg): 133 DBP (mmHg): 65 METS: --- Stage: REST Duration (min): 14 min : 1 sec Speed (mph): 0.0 Grade (%): 0 HR (bpm): 89 SBP (mmHg): 133 DBP (mmHg): 65 METS: --- Stage: STAGE 1 Duration (min): 1 min : 0 sec Speed (mph): 1.7 Grade (%): 10 HR (bpm): 93 SBP (mmHg): 133 DBP (mmHg): 65 METS: --- Stage: STAGE 1 Duration (min): 2 min : 0 sec Speed (mph): 1.7 Grade (%): 10 HR (bpm): 108 SBP (mmHg): 133 DBP (mmHg): 65 METS: --- Stage: STAGE 1 Duration (min): 3 min : 0 sec Speed (mph): 1.7 Grade (%): 10 HR (bpm): 122 SBP (mmHg): 140 DBP (mmHg): 41 METS: --- Stage: STAGE 2 Duration (min): 1 min : 0 sec Speed (mph): 2.5 Grade (%): 12 HR (bpm): 122 SBP (mmHg): 140 DBP (mmHg): 41 METS: --- Stage: STAGE 2 Duration (min): 1 min : 33 sec Speed (mph): 0.0 Grade (%): 0 HR (bpm): 133 SBP (mmHg): 140 DBP (mmHg): 41 METS: --- Stage: RECOVERY Duration (min): 0 min : 26 sec Speed (mph): 0.0 Grade (%): 0 HR (bpm): 85 SBP (mmHg): 171 DBP (mmHg): 48 METS: --- Stage: RECOVERY Duration (min): 1 min : 26 sec Speed (mph): 0.0 Grade (%): 0 HR (bpm): 111 SBP (mmHg): 171 DBP (mmHg): 48 METS: --- Stage: RECOVERY Duration (min): 2 min : 26 sec Speed (mph): 0.0 Grade (%): 0 HR (bpm): 99 SBP (mmHg): 171 DBP (mmHg): 48 METS: --- Stage: RECOVERY Duration (min): 3 min : 6 sec Speed (mph): 0.0 Grade (%): 0
== END 2021-10-25 09:45 | disposition home or self-care (01) ==
LOC: ANHCARD 09:48
PROVIDERS: PCP Family Medicine; Visit Provider Family Medicine
DX: R53.83 Other fatigue (principal); R06.00 Dyspnea, unspecified
CPT/HCPCS: 93351

== ENCOUNTER 2021-10-28 09:47 | Outpatient (CLI) | payer MEDICARE, SELFPAY ==
[2021-10-28 11:37] LABS: Appearance Urine Clear (Clear); Bilirubin Urine Negative (Negative); Blood Urine Negative (Negative); Color Urine Yellow (Yellow); Glucose Urine UA 2+ mg/dL (Negative); Ketones Urine Negative (Negative); Leukocyte Esterase Ur Negative LEU/UL (Negative); Nitrate Urine Negative (Negative); Protein Urine Negative (Negative); Specific Grav Ur 1.015 (1.001-1.035); Urobilinogen Urine 0.2 mg/dL (<2.0); pH Urine 5.5 (5.0-9.0)
[2021-10-28 11:48] LABS: Mucus Urine Rare /lpf; RBC Urine 0-2 /hpf (0-2); Squamous Epithelial Cell Urine Rare /hpf (Few)
[2021-10-28 11:50] LABS: Add Urine Microscopic? YES
--- NOTE | 2021-10-30 11:14 | IDPHARM ---
Subjective Pharmacy was consulted by {Provider} regarding infectious diseases for Jihan Villalta. Jihan Villalta is a 66 year old F with concerns regarding operative antibiotics and a potential UTI Background The patient had received levofloxacin and cefazolin during this time. The patient's urine culture resulted in an E coli resistant to cefazolin and levofloxacin. The MRSA screening obtained in the prior weeks was negative. Assessment/Recommendation/Discussion Operative antibiotics are predominantly looking to cover common skin pathogens without requiring coverage for MRSA per discussion with provider. Ceftriaxone 2g daily likely covers the skin bugs and does cover the urinary pathogen. Another 3rd generation cephalosporin is cefdinir which, if CrCl >30 mL/min, can be dosed as a 300 mg BID to help with UTI coverage for when oral therapy is appropriate if the patient tolerates ceftriaxone therapy well. Thank you for the interesting consult. Rony Salinas, PharmD Infectious Disease/Antimicrobial Stewardship Pharmacist 10/30/21; 2025
== END 2021-10-28 09:48 | disposition home or self-care (01) ==
PROVIDERS: PCP Family Medicine; Visit Provider Nurse Practitioner Family
DX: Z01.818 Encounter for other preprocedural examination (principal); N39.0 Urinary tract infection, site not specified
CPT/HCPCS: 81001; 87077; 87086; 87186

== ENCOUNTER 2021-10-30 00:39 | Day surgery (SDC) | payer MEDICARE, SELFPAY ==
[2021-10-22 10:15] VITALS: BMI 34.0
--- NOTE | 2021-10-22 10:47 | PC.NURSE ---
Report to the Outpatient Waiting Room, entrance under the green pavilion located off [facility], at time _0600 on date _10/30/21 . OR Time: __30 . - You and your visitor will be asked to self-screen and do not enter if you have any COVID symptoms. - Only one visitor and NO children visitors are allowed at this time. - The patient visitor is requested to leave or wait in car when not with patient due to restrictions. - A mask is required within the hospital. Patients may have clear liquids (water, carbonated beverages, clear teas, apple juice) until 3 hours prior to surgery with a maximum of 20 ounces. - No food from midnight until time of surgery - Infants may have breast milk until 4 hours before surgery, infant formula 6 hours prior to surgery. - Children will be allowed to drink immediately following surgery. If applicable, please bring a bottle or sippy cup to assist with drinking. Juice, water, soda, and popsicles are readily available. For infants on formula, please bring formula the day of surgery. Pacifiers are allowed. Take the following medications with a SIP of water the morning of surgery: ___FLUOXETINE Medications to discontinue per physician _ASPIRIN/MELOXICAM PER DR ATKINS, ALL VITAMINS AND SUPPLEMENTS 3 DAYS PRE OP Date to take last dose__10/26/21 Please no make-up, nail cay[place] islander, hairspray, perfume, deodorant, or body powder the day of surgery. No jewelry (including any body piercings) or valuables the day of surgery, leave them at home. Please take a shower or bath the night before, or the morning of, surgery with an antibacterial soap. Wear comfortable, loose fitting clothing. Children are encouraged to wear pajamas. - Jewelry must be removed prior to entering the operating room. Rings and piercings that are not removed may be cut off. - The hospital will not accept responsibility for valuables. - Please leave all valuables, including medications, at home the day of surgery. If you are going home after surgery, a licensed transport driver must drive you home. - NO public transportation without another adult. - We recommend that an adult stay with you for 24 hours following discharge. - We also recommend that you do not drive, make important decision, drink alcoholic beverages, or take any drugs that were not prescribed by your health care provider for at least 24 hours after your discharge time. For Pediatric surgeries, we recommend two adults accompany the child home (only one inside the building at this time). Follow any additional instructions given to you from your surgeon. If you or anyone in your household have experienced Covid symptoms in the past week, please notify your surgeon or the nurse liaison at the phone number below for possible testing. VERBAL AND WRITTEN instructions given to ___PATIENT and asked if any additional questions and then verbalized understanding. Patient advised to call surgeon office or pre surgery nurse liaison [phone] if any additional questions.
[2021-10-22 11:07] VITALS: BP 122/68; PULSE 76; RESP 18; TEMP 37.3; O2SAT 97
--- NOTE | 2021-10-29 12:08 | WPDANESEPPF ---
Anes - Initial Pre Proc Eval Procedure: Operation Date: 10/30/21 07:30 Proposed Procedures p Left Total Hip Arthroplasty and Right Knee Cortisone Injection - Julito Hearn MD Date/Time: 10/29/21 12:08 Surgeon: Julito Hearn MD Pre Op Diagnosis: left hip djd, Rt Knee DJD Patient Data Age: 66 Gender: F Height: 1.65 m Weight: 92.6 kg Last Vital Signs Temp 37.3 C 10/22/21 11:07 Pulse 76 10/22/21 11:07 Resp 18 10/22/21 11:07 BP 122/68 10/22/21 11:07 Pulse Ox 97 10/22/21 11:07 O2 Del Method Room Air 10/22/21 11:07 Allergies Allergy/AdvReac Type Severity Reaction Status Date / Time amoxicillin AdvReac Severe rash Verified 10/30/21 06:09 celecoxib AdvReac Intermediate Skin Verified 10/30/21 06:09 Reaction empagliflozin AdvReac Intermediate Diarrhea Verified 10/29/21 11:56 lisinopril AdvReac Intermediate Cough Verified 10/29/21 11:56 metformin AdvReac Intermediate Diarrhea Verified 10/29/21 11:56 sitagliptin AdvReac Intermediate DIARRHEA Verified 10/29/21 11:56 Home Medications Medication Instructions Recorded Confirmed Type blood sugar diagnostic (OneTouch #200 ea 12/02/19 08/14/21 Rx Verio test strips) blood-glucose meter (OneTouch #1 ea 12/02/19 08/14/21 Rx Verio Flex Start kit) lancets (OneTouch UltraSoft #200 ea 12/02/19 08/14/21 Rx Lancets) fluticasone propionate 50 2 spray intranasal DAILY #16 grams 08/13/20 10/30/21 Rx mcg/actuation nasal spray,suspension (Flonase Allergy Relief) Adult Probiotic 1 cap PO DAILY 03/06/21 10/30/21 History Glucosamine Chondroitin 2 cap PO DAILY 03/06/21 10/30/21 History Hair, Skin, Nails with Biotin 1 cap PO DAILY 03/06/21 10/30/21 History cholecalciferol (vitamin D3) 125 125 mcg PO DAILY 03/06/21 10/30/21 History mcg (5,000 unit) tablet (Vitamin D3) krill 500 mg-omega 3 115 mg-dha 30 1 cap PO DAILY 03/06/21 10/30/21 History mg-epa 64 [id number] capsule (MegaRed Elfrida-3 Krill Oil) magnesium oxide 400 mg PO DAILY 03/06/21 10/30/21 History mecobalamin (vitamin B12) 5,000 5,000 mcg PO DAILY 03/06/21 10/30/21 History mcg lozenge methylcellulose (laxative) 500 mg 500 mg PO DAILY 03/06/21 10/30/21 History tablet (Citrucel) nystatin 100,000 unit/gram topical 1 applic topical PRN PRN RASH 03/06/21 10/30/21 History powder (Nystop) potassium 99 mg tablet 99 mg PO DAILY 03/06/21 10/30/21 History cetirizine 10 mg tablet 10 mg PO DAILY #90 tabs 03/13/21 10/30/21 Rx cyclobenzaprine 10 mg tablet 10 mg PO TID PRN muscle spasm #30 03/18/21 10/30/21 Rx tabs mirtazapine 15 mg tablet 15 mg PO HS 03/25/21 10/30/21 History fluoxetine 40 mg capsule See Rx Instructions .Route 04/26/21 10/30/21 Rx .COMPLEX #90 caps meloxicam 15 mg tablet 15 mg PO DAILY #90 tabs 05/01/21 10/30/21 Rx solifenacin 10 mg tablet (Vesicare) 10 mg PO DAILY #90 tabs 05/03/21 10/30/21 Rx famotidine 20 mg tablet 40 mg PO DAILY 90 days #180 tabs 05/14/21 10/30/21 Rx pantoprazole 40 mg tablet,delayed 40 mg PO DAILY #90 tabs 05/14/21 10/30/21 Rx release pilocarpine HCl 5 mg tablet 5 mg PO TID 90 days #270 tabs 05/14/21 10/30/21 Rx (Salagen (pilocarpine)) atorvastatin 20 mg tablet (Lipitor) 20 mg PO QHS #90 tabs 07/24/21 10/30/21 Rx losartan 50 mg tablet 50 mg PO DAILY #90 tabs 08/01/21 10/30/21 Rx albuterol sulfate 90 mcg/actuation 2 inh inhalation Q4H PRN shortness 08/23/21 10/30/21 Rx aerosol inhaler (ProAir HFA) of breath or wheezing #8.5 grams dapagliflozin 10 mg tablet 10 mg PO DAILY #90 tabs 10/08/21 10/30/21 Rx (Farxiga) acetaminophen 650 mg 1,300 mg PO Q12H PRN Pain 10/22/21 10/30/21 History tablet,extended release (Tylenol Arthritis Pain) ascorbic acid (vitamin C) 2,000 mg 2,000 mg PO DAILY 10/22/21 10/30/21 History tablet,extended release aspirin 81 mg tablet,delayed 81 mg PO DAILY 10/22/21 10/30/21 History release (Adult Low Dose Aspirin) hydrochlorothiazide 25 mg tablet 25 mg PO DAILY 10/22/21
[2021-10-30] VITALS (17 sets, daily range): BP systolic 111–159; BP diastolic 56–76; PULSE 72–98; RESP 10–20; TEMP 36.4–36.8; O2SAT 92–100
--- NOTE | ~2021-10-30 | XR_ITS ---
EXAMINATION: XR hip LT min 2V DATE: 10/30/2021 10:48 INDICATION: Postoperative evaluation following left total hip arthroplasty TECHNIQUE: Anteroposterior and lateral views of the left hip were obtained. COMPARISON: 10/28/2021 FINDINGS: Interval placement of a noncemented left total hip arthroplasty which appears well seated in near maikel tomic alignment. Expected subcutaneous gas in the postoperative bed. No fractures identified. IMPRESSION: 1. Left total hip arthroplasty, negative for postoperative purposes. Reviewed, dictated and finalized at location A.
[2021-10-30] MEDS: ACETAMINOPHEN 500 MG TABLET 1000 MG PO (06:31)
[2021-10-30] MEDS: LACTATED RINGERS 1,000 ML 30 ML IV CONT ×2 (06:35→10:21)
[2021-10-30 06:43] LABS: Glucose Point of Care 139 mg/dl (65-105)
--- NOTE | 2021-10-30 07:21 | WPDHPUPDATE1 ---
History and Physical Update Update Date/Time: 10/30/21 07:21 History and Physical has been reviewed, including an updated exam of the patient. There are NO changes in the patient's condition. Risks, benefits, and alternatives have been discussed and questions answered. Patient agrees to proceed with procedure.
--- NOTE | 2021-10-30 07:32 | SUR.PREOP ---
0710-Reviewed positive urine culture with Dr. Hearn, states will add additional antibiotic (Levaquin ordered).
[2021-10-30] MEDS: levoFLOXacin 500 MG/D5W 100 ML 500 MG/100 ML BAG 100 MG IVPB (07:33)
[2021-10-30] MEDS: TRANEXAMIC ACID 1,000MG/ISO100 1,000 MG/100 ML BAG 200 MG IVPB (07:35)
--- NOTE | 2021-10-30 07:39 | SUR.PREOP ---
0710-Urine culture result reviewed with Dr. Hearn, will add additional antibiotic (Levaquin ordered) and proceed.
[2021-10-30] MEDS: ceFAZolin 2 GM/D5W 50 ML 2 GM/50 ML BAG IVPB (07:52)
[2021-10-30] MEDS: TRANEXAMIC ACID 1,000 MG/10 ML AMPUL 1000 MG IV PUSH (09:24)
[2021-10-30] MEDS: methylPREDNISolone ACETATE 80 MG/ML VIAL I-ARTICULR (09:32)
[2021-10-30] MEDS: fentaNYL CITRATE INJ (*CRX) 100 MCG/2 ML VIAL 25 MCG IV PUSH ×7 (10:33→11:36)
[2021-10-30] MEDS: HYDROmorphone HCL INJ (*CRX) 1 MG/ML SYR 0.25 MG IV PUSH ×8 (10:47→11:50)
[2021-10-30 11:11] LABS: Glucose Point of Care 188 mg/dl (65-105)
--- NOTE | 2021-10-30 11:19 | W.PM.PROC2 ---
Procedure Note - Detailed Date of Procedure 10/30/21 Pre-op Diagnosis left hip djd, Rt Knee DJD Post-op Diagnosis Same Procedure Performed L CARLOS Surgeon Julito Hearn MD Anesthesia General Description of Procedure THE PATIENT WAS TAKEN TO THE OPERATING ROOM IN STABLE CONDITION AND WAS PLACED IN THE LATERAL DECUBITUS AND THE LEFT LOWER EXTREMITY WAS PREPPED AND DRAPED IN THE STERILE FASHION. INCISION WAS MADE IN THE POSTERIOR LATERAL SIDE OF THE HIP, DOWN TO THE FASCIA LAYER. THE FASCIA WAS INCISED. THE HIP WAS EXPOSED. THE SHORT EXTERNAL ROTATORS WERE EXPOSED. THE SCIATIC NERVE WAS IDENTIFIED. INCISION WAS MADE THROUGH THE SHORT EXTERNAL ROTATORS AND THE CAPSULE OF THE HIP JOINT. THE HIP WAS DISLOCATED. AN OSTEOTOMY WAS MADE TO THE FEMORAL NECK ABOUT 1 CM PROXIMAL TO THE LESSER TROCHANTER. THE ACETABULUM WAS EXPOSED. THERE WAS SEVERE DJD SEEN. BEGINNING WITH A 44 REAMER THE ACETABULUM WAS REAMED TO 51 MM. A 51 MM TRIAL WAS PLACED IN 35 DEG OF ABDUCTION AND ANTEVERSION WAS IN ALIGNMENT WITH THE TRANS ACETABULAR LIGAMENT. THE FIT WAS EXCELLENT. THE TRIAL WAS REMOVED. A 52 MM BIOMET G7 COMPONENT WAS THEN TAPPED IN TO PLACE IN 35 DEG OF ABDUCTION AND ANTEVERSION IN ALIGNMENT WITH THE TRANSVERSE ACETABULAR LIGAMENT. THE FIT WAS EXCELLENT. THE ACETABULAR LINER WAS PLACED AND CHECKED FOR STABILITY. NEXT THE FEMUR WAS PREPARED WITH INITIAL CANAL FINDER THEN SEQUENTIAL BROACHING WITH A TAPERLOC HIP SYSTEM, UNTIL A 11 BROACH FIT WELL IN 15 OF ANTEVERSION. A 0 HIGH OFFSET NECK WITH 36 MM HEAD TRIAL WAS PLACED. THE SHUCK TEST WAS EXCELLENT AND THE STABILITY IN FLEXION AND ROTATION WAS EXCELLENT. LEG LENGTHS WERE GROSSLY EQUAL. TRIALS WERE REMOVED. A BIOMET TAPERLOC 11 STEM WAS PLACED WITH A HIGH OFFSET NECK. THE FIT WAS EXCELLENT IN 15 DEG OF ANTEVERSION. AN 0 CERAMIC 36 MM FEMORAL CERAMIC HEAD WAS PLACED. THE HIP WAS TRIALED AND THE STABILITY WAS EXCELLENT WERE THE LEG LENGTHS AND THE SHUCK TEST. THE WOUND WAS IRRIGATED WITH STERILE BETADINE AND WATER FOR 3 MIN. THEN WASHED AGAIN. THE CAPSULE AND THE EXTERNAL ROTATORS WERE APPROXIMATED WITH NUMBER 1 VICRYL. THE FASCIA WITH No 2 QUIL AND THE SUB CUTANEOUS LAYER WITH 2-0 ABSORBABLE SUTURE WITH A RUNNING 3-0 SUBCUTICULAR LAYER WELL. DERMABOND WAS PLACED AND STERILE DRESSING WAS APPLIED. PATIENT WAS PLACED BACK ON TO THE SUPINE POSITION AND WAS EXTUBATED Estimated Blood Loss -150.0 Complications No immediate complications Condition Stable Disposition PACU
--- NOTE | 2021-10-30 12:31 | PC.NURSE ---
This patient, Jihan Villalta, was admitted to Medical Room 246-. Patient/family oriented to hospital policies and general routines including ID bracelet, bed and alarms, visiting hours, pain management, procedures, bathroom and other care routines, personal items, smoking policy, room service/diet, and visiting hours. Information on how to activate the Rapid Response Team has been discussed. Patient/Family are encouraged to report perceived risks to care and to ask questions if they do not understand what they are told or what they should do.
[2021-10-30] MEDS: HYDROcodone/acetaminophen (*CRX) 7.5-325 MG TABLET 1 TAB PO (13:39)
[2021-10-30] MEDS: DEXTROSE 5%/0.45% SOD CHL 1,000 ML 80 ML IV CONT (15:01)
[2021-10-30] MEDS: cefTRIAXone 2 GM in SODIUM CHLORIDE 0.9% IV 100 ML 200 ML IVPB (15:02)
[2021-10-30] MEDS: MAGNESIUM OXIDE 400 MG TABLET PO (15:08)
[2021-10-30] MEDS: ZINC SULFATE 220 MG CAPSULE PO (15:08)
[2021-10-30] MEDS: hydroCHLOROthiazide 25 MG TABLET PO (15:09)
[2021-10-30] MEDS: LOSARTAN POTASSIUM 50 MG TABLET PO (15:09)
[2021-10-30] MEDS: PANTOPRAZOLE 40 MG TABLET PO (15:09)
[2021-10-30] MEDS: SOLIFENACIN 5 MG TABLET 10 MG PO (15:10)
[2021-10-30] MEDS: FAMOTIDINE 20 MG TABLET 40 MG PO (15:10)
[2021-10-30] MEDS: CHOLECALCIFEROL 1,000 UNITS TABLET 5000 UNITS PO (15:11)
[2021-10-30] MEDS: KETOROLAC 15 MG/ML VIAL (*BKC) IV PUSH ×3 (15:12→23:04)
[2021-10-30] MEDS: SENNA/DOCUSATE SODIUM TABLET 2 TAB PO (17:13)
[2021-10-30] MEDS: GABAPENTIN 300 MG CAPSULE 600 MG BY MOUTH (20:23)
[2021-10-30] MEDS: ASPIRIN 325 MG ENTERIC TABLET PO (20:24)
[2021-10-30] MEDS: ATORVASTATIN 20 MG TABLET PO (20:24)
[2021-10-31 01:35] VITALS: BP 107/59; PULSE 80; RESP 16; TEMP 36.5; O2SAT 92
[2021-10-31 04:54] VITALS: BP 110/57; PULSE 87; RESP 16; TEMP 36.9; O2SAT 94
[2021-10-31] MEDS: KETOROLAC 15 MG/ML VIAL (*BKC) IV PUSH ×2 (05:46→12:29)
[2021-10-31 05:50] LABS: Basophils Percent Auto 0.1 % (0.2-1.2); Hematocrit 32.3 % (37.0-47.0); Hemoglobin 10.1 g/dL (12.0-15.0); Immature Granulocyte Absolute 0.06 K/mm3 (0.00-0.031); Immature Granulocyte Percent A 0.4 % (0-0.5); Lymphocytes Absolute Auto 0.92 K/mm3 (0.9-3.2); Lymphocytes Percent Auto 6.1 % (18.3-44.2); Mean Corpuscular HGB Conc 31.3 g/dl (32-36); Mean Corpuscular Hemoglobin 27.6 pg (26-34); Mean Corpuscular Volume 88.3 fl (80-100); Mean Platelet Volume 11.5 fl (7.4-10.4); Monocytes Absolute Auto 1.2 K/mm3 (0.1-0.6); Monocytes Percent Auto 7.9 % (2.6-8.5); Neutrophils Absolute Auto 12.9 K/mm3 (1.3-6.7); Neutrophils Percent Auto 85.5 % (45.5-73.1); Platelet Count Result 226 k/mm3 (150-375); Red Blood Count 3.66 M/mm3 (4.2-5.4); Red Cell Distribution Width 13.7 % (11.5-14.5); White Blood Count 15.1 K/mm3 (4.5-10.0)
[2021-10-31 06:22] LABS: Anion Gap 11 mmol/L (8-16); Blood Urea Nitrogen 17 mg/dL (7-17); Calcium 9.1 mg/dL (8.4-10.2); Carbon Dioxide 26 mmol/L (22-30); Chloride 98 mmol/L (98-107); Estimated CRCL calculation 62 ml/min; Estimated Glomerular Filt Rate > 60; Glucose 197 mg/dL (65-110); Potassium 2.9 mmol/L (3.4-5.0); Sodium 135 mmol/L (137-145)
[2021-10-31 08:21] LABS: Magnesium 1.9 mg/dL (1.6-2.3)
[2021-10-31] MEDS: POTASSIUM CHLORIDE INJ 40 MEQ in SODIUM CHLORIDE 0.9% IV 500 ML 130 MEQ IVPB (09:02)
[2021-10-31] MEDS: POTASSIUM CHLORIDE 20 MEQ PACKET (FOR LIQUID) 40 MEQ PO (09:09)
[2021-10-31] MEDS: SODIUM CHLORIDE 0.9% IV 100 ML 10 ML (09:10)
[2021-10-31] MEDS: ASCORBIC ACID 500 MG TABLET 2000 MG PO (09:11)
[2021-10-31] MEDS: ASPIRIN 325 MG ENTERIC TABLET PO (09:12)
[2021-10-31] MEDS: CHOLECALCIFEROL 1,000 UNITS TABLET 5000 UNITS PO (09:12)
[2021-10-31] MEDS: FAMOTIDINE 20 MG TABLET 40 MG PO (09:13)
[2021-10-31] MEDS: SENNA/DOCUSATE SODIUM TABLET 2 TAB PO (09:13)
[2021-10-31] MEDS: hydroCHLOROthiazide 25 MG TABLET PO (09:14)
[2021-10-31] MEDS: LORATADINE 10 MG TABLET PO (09:14)
[2021-10-31] MEDS: FLUoxetine HCL 20 MG CAPSULE 40 MG BY MOUTH (09:14)
[2021-10-31] MEDS: PANTOPRAZOLE 40 MG TABLET PO (09:15)
[2021-10-31] MEDS: SOLIFENACIN 5 MG TABLET 10 MG PO (09:15)
[2021-10-31] MEDS: LOSARTAN POTASSIUM 50 MG TABLET PO (09:15)
[2021-10-31] MEDS: polyethylene glycoL 3350 17 GM POWD.PACK PO (09:15)
[2021-10-31] MEDS: MAGNESIUM OXIDE 400 MG TABLET PO (09:15)
[2021-10-31] MEDS: ZINC SULFATE 220 MG CAPSULE PO (09:16)
[2021-10-31 09:27] LABS: Glucose Point of Care 265 mg/dl (65-105)
[2021-10-31] MEDS: INSULIN ASPART (*BKC) 100 UNITS/ML SUB-Q (09:39)
--- NOTE | 2021-10-31 09:39 | PM.PNORT ---
Progress Note: A&P Assessment and Plan (1) S/P total hip arthroplasty: Code(s): Z96.649 - Presence of unspecified artificial hip joint Status: Acute Assessment and Plan: POD #1 : Left CARLOS Continue PT/OT. WBAT. Walker. HIGH FALL RISK. Continue pain control. Ice hip. Protect skin. DVT prophylaxis with Aspirin. SCDs. Incentive Spirometry Use reviewed. Monitor Dressing. Change prior to discharge. Bowel Regimen. Dispo: Home with Home Health pending progress with PT/OT and medical stability. (2) Hypokalemia: Code(s): E87.6 - Hypokalemia Status: Acute Assessment and Plan: Potassium 2.9 today. Repletion initiated by Dr. Hearn. Medicine team consulted, appreciate recommendations. Subjective Subjective Date/Time Seen: 10/31/21 09:39 Post Op day: 1 Principal diagnosis: Left CARLOS Interval history: POD #1: Left CARLOS Pain well controlled. No concerns. Tolerating diet well. Working well with PT/OT. Review of Systems Constitutional: Constitutional: Denies chills, Denies fatigue, Denies fever(s), Denies night sweats and Denies weakness Cardiovascular: Cardiovascular: Denies chest pain, Denies lightheadedness, Denies palpitations and Denies dyspnea Respiratory: Respiratory: Denies cough, Denies dyspnea and Denies wheezing Gastrointestinal: Gastrointestinal: Denies abdominal pain, Denies diarrhea, Denies nausea and Denies vomiting Musculoskeletal: Musculoskeletal: Reports arthralgias (left hip ), Reports joint swelling (left hip ) and Denies numbness Neurologic: Denies numbness and Denies weakness Endocrine: Endocrine: Denies fatigue and Denies palpitations Allergic/Immunologic: Allergic/Immunologic: Denies wheezing Exam Const: General: comfortable and no acute distress Orientation/consciousness: patient oriented x3 Limitations: no limitations Resp: Effort & Inspection: normal respiratory effort Cardio: Rate: regular rate Rhythm: regular rhythm GI: Inspection: non-distended Skin: General skin exam: normal color Wounds: wounds noted (incision left hip C/D/I ) Neuro: General: patient oriented x3 Extrem: Left lower extremity: hip/thigh Details: tenderness Location: of the hip Location: laterally and anteriorly, swelling (thigh soft ) Location: of the hip (lateral. ), abnormal ROM (limitations with internal/external rotation and flexion/extension due to recent surgical intervention ) and other (incision lateral hip c/d/i. ), knee Details: normal to inspection and normal ROM; no tenderness and no swelling, lower leg (Negative Swapna's Sign ) Details: no edema, ankle (+ankle dorsiflexion/plantarflexion ) Details: normal to inspection, no edema and normal ROM; no tenderness, no swelling and no warmth and foot Details: normal capillary refill, toes with normal ROM, vascular exam Details: dorsalis pedis pulse present and motor-sensory exam light-touch normal in all toes; no tenderness, no ecchymosis and no crepitus Psych: Mental Status: mental status grossly normal Affect: normal affect Objective Data Vital Signs Vital Signs: Vital Signs - 24 hr 10/30/21 10:21 10/30/21 10:55 10/30/21 11:10 Temperature 36.6 C Pulse Rate 98 78 77 Respiratory Rate 16 12 10 L Blood Pressure 159/76 H 131/63 123/69 Pulse Oximetry 93 99 92 Oxygen Delivery Simple Face Mask Simple Face Mask Room Air Oxygen Flow Rate 10 10 10/30/21 11:25 10/30/21 11:40 10/30/21 11:53 Temperature Pulse Rate 76 76 79 Respiratory Rate 10 L 19 10 L Blood Pressure 114/67 117/61 125/65 Pulse Oximetry 98 95 97 Oxygen Delivery Nasal Cannula Nasal Cannula Nasal Cannula Oxygen Flow Rate 2 2 2 10/30/21 10:35 10/30/21 12:05 10/30/21 12:31 Temperature Pulse Rate 92 80 Respiratory Rate 16 12 Blood Pressure 111/76 119/56 L Pulse Oximetry 96 95 92 Oxygen Delivery Simple Face Mask Nasal Cannula Nasal Cannula Oxygen Flow Rate 8 2 2 10/30/21 13:14 10/30/21 12:35 10/30/21 12:50 Temperature
[2021-10-31 09:51] VITALS: O2SAT 97
[2021-10-31 09:59] VITALS: BP 115/59; PULSE 81; RESP 16; TEMP 36.9; O2SAT 97
--- NOTE | 2021-10-31 10:53 | PM.IMCN ---
Assessment and Plan Assessment and plan (1) S/P total hip arthroplasty: Code(s): Z96.649 - Presence of unspecified artificial hip joint Status: Acute Assessment and Plan: Ortho following, pain management per primary. On ASA 325 BID for ppx (2) UTI (urinary tract infection): Code(s): N39.0 - Urinary tract infection, site not specified Status: Acute Assessment and Plan: E coli growing in 10/28 urine cx. Received 2 doses of rocephin, continue 1 more day of bactrim. (3) Hypokalemia: Code(s): E87.6 - Hypokalemia Status: Acute Assessment and Plan: Potassium 2.9. Will give potassium 40 IV and 40 PO and recheck around 2 pm. Mg noted to be 1.9, will give 1 g (4) GERD (gastroesophageal reflux disease): Code(s): K21.9 - Gastro-esophageal reflux disease without esophagitis Status: Acute Assessment and Plan: continue protonix (5) Mixed hyperlipidemia: Code(s): E78.2 - Mixed hyperlipidemia Status: Acute Assessment and Plan: continue statin (6) Essential (primary) hypertension: Code(s): I10 - Essential (primary) hypertension Status: Acute Assessment and Plan: continue meds (7) Depression: Code(s): F32.A - Depression, unspecified Status: Acute Assessment and Plan: continue meds [facility] Data of Consult Consult date: 10/31/21 Requesting Physician: Julito Hearn MD Primary Care Provider: Gael Soriano MD Consult Narrative Narrative: Jihan Villalta is a 66 year old female PMHx of depression/anxiety, HTN/HLD, GERD. Patient presented for elective L total hip arthroplasty 10/30 and is now being evaluated post-op as medical consult. Patient reports dull, achy pain at the site but has been able to ambulate comfortable on it. Report a few days of ongoing increased urinary frequency. UA was done 10/28 that showed negative LE and nitrates, however 6-10 WBCs. Urine culture positive for E coli. Patient was started on rocephin post-op, has now completed 2 doses of this. Patient eager to go home today. Review of Systems Review of Systems: 10 point ROS reviewed, negative unless otherwise specified per HPI [facility] Past Medical History Medical History (Updated 10/31/21 @ 11:02 by Cholo Evans DO) Anxiety and depression Basal cell carcinoma of skin, unspecified Benign neoplasm of colon Breast cancer screening Chronic right hip pain Degenerative joint disease of left hip Degenerative joint disease of left hip Diverticulosis of colon (without mention of hemorrhage) Dry eye Dystrophic nail Dysuria Essential (primary) hypertension Fibromyalgia Glossitis Hip pain, bilateral Hypokalemia Intertriginous dermatitis associated with moisture Irritable bowel syndrome with diarrhea Left hip pain Left knee DJD Major depressive disorder, single episode, unspecified Mixed hyperlipidemia Obesity, Class I, BMI 30-34.9 Other specified diabetes mellitus without complications Panniculitis Preoperative testing Primary osteoarthritis of both knees Rectal polyp Right knee DJD Urge incontinence UTI (urinary tract infection) Vulvitis Surgical History Surgical History (Updated 10/31/21 @ 08:24 by RAGHAV Diez) History of total left hip arthroplasty History of total left knee replacement (TKR) S/P total hip arthroplasty Family History Family History Father Family history of Alzheimer's disease Mother Family history of diabetes mellitus in first degree relative Patient's mother is Diabetes mellitus Family history of cardiovascular disease Family history of arthritis Family history of malignant neoplasm of breast Family history of malignant neoplasm of kidney Grandparent Hypertension Family history of malignant neoplasm Sibling Malignant neoplasm of prostate Other Cerebrovascular accident Family history of heart disease i
[2021-10-31 12:27] LABS: Glucose Point of Care 181 mg/dl (65-105)
--- NOTE | 2021-10-31 13:06 | WPDANESPN ---
Anes - Prog Note Post-Op Date/Time: 10/31/21 13:06 Cardiovascular status: normal Respiratory status: normal Airway patency: baseline Mental status: baseline Post-Op hydration status: normal Vital Signs: Last Vital Signs Temp 36.9 C 10/31/21 09:59 Pulse 81 10/31/21 09:59 Resp 16 10/31/21 09:59 BP 115/59 L 10/31/21 09:59 Pulse Ox 97 10/31/21 09:59 O2 Del Method Room Air 10/31/21 09:51 O2 Flow Rate 2 10/30/21 12:31 Pain Score (VAS): 3 I/O: Intake & Output 10/30/21 10/31/21 10/31/21 23:59 07:59 15:59 Intake Total 222 1350 720 Output Total 1000 1400 Balance -778 -50 720 Laboratory Tests 10/31/21 05:05 10/31/21 05:05 10/31/21 10/31/21 10/31/21 05:05 05:05 05:05 WBC 15.1 H RBC 3.66 L Hgb 10.1 L Hct 32.3 L MCV 88.3 MCH 27.6 MCHC 31.3 L RDW 13.7 Plt Count 226 MPV 11.5 H Immature Gran % (Auto) 0.4 Neut % (Auto) 85.5 H Lymph % (Auto) 6.1 L [place] % (Auto) 7.9 Eos % (Auto) 0.0 Baso % (Auto) 0.1 L Lymph # (Auto) 0.92 [place] # (Auto) 1.2 H Eos # (Auto) 0.0 Baso # (Auto) 0.0 Abs Immat Gran (auto) 0.06 H Absolute Neuts (auto) 12.9 H Absolute Nucleated RBC 0.0 Nucleated RBC % 0.0 Sodium 135 L Potassium 2.9 L Chloride 98 Carbon Dioxide 26 Anion Gap 11 BUN 17 Creatinine 0.90 Estim Creat Clear Calc 62 Estimated GFR > 60 Glucose 197 H POC Capillary Glucose Calcium 9.1 Magnesium 1.9 10/31/21 10/31/21 09:19 12:25 WBC RBC Hgb Hct MCV MCH MCHC RDW Plt Count MPV Immature Gran % (Auto) Neut % (Auto) Lymph % (Auto) [place] % (Auto) Eos % (Auto) Baso % (Auto) Lymph # (Auto) [place] # (Auto) Eos # (Auto) Baso # (Auto) Abs Immat Gran (auto) Absolute Neuts (auto) Absolute Nucleated RBC Nucleated RBC % Sodium Potassium Chloride Carbon Dioxide Anion Gap BUN Creatinine Estim Creat Clear Calc Estimated GFR Glucose POC Capillary Glucose 265 H 181 H Calcium Magnesium Post-procedural complaints: none Patient Feedback: Patient satisfied with anesthetic care.
[2021-10-31 13:59] VITALS: BP 124/65; PULSE 71; RESP 16; TEMP 36.8; O2SAT 100
[2021-10-31] MEDS: MAGNESIUM SULF 1 GM/D5W 100 ML 1 GM/100 ML BAG IVPB (14:15)
--- NOTE | 2021-10-31 15:57 | PM.DS ---
DS: Admitting Diagnosis Discharge Date 10/31/21 Admitting Diagnosis Left Hip DJD DS: Discharge Diagnosis Discharge Diagnosis (1) S/P total hip arthroplasty: Code(s): Z96.649 - Presence of unspecified artificial hip joint Status: Acute Assessment and Plan: POD #1 : Left CARLOS Continue PT/OT. WBAT. Walker. HIGH FALL RISK. Continue pain control. Ice hip. Protect skin. DVT prophylaxis with Aspirin. SCDs. Incentive Spirometry Use reviewed. Monitor Dressing. Change prior to discharge. Bowel Regimen. Dispo: Home with Home Health pending progress with PT/OT and medical stability. (2) Hypokalemia: Code(s): E87.6 - Hypokalemia Status: Acute Assessment and Plan: Potassium 2.9 today. Repletion initiated by Dr. Hearn. Medicine team consulted, appreciate recommendations. DS: Summary Hospital Course Reason for hospitalization: Left CARLOS Hospital Course: 66-year-old female admitted status post left total hip arthroplasty for postoperative medical management, pain control and mobilization with physical and occupational therapy. Patient progressed very well on postop day 1. She did have some difficulties with hypokalemia with a potassium of 2.9. Patient was repleted with potassium and Medicine team was consulted. Discharging potassium at 4.0. We will recheck potassium and 4 days with a BMP by the home health RN. Patient was cleared by Physical therapy to be discharged home at this time. Patient will follow up in 3 weeks in the outpatient orthopedic clinic for re-evaluation and repeat radiographs. Status at Discharge Functional status at discharge: uses cane/walker Overall status at discharge: patient is progressing back to baseline Time Spent with Patient Time attestation: Total time spent providing and/or coordinating discharge services: Exam Const: General: comfortable and no acute distress Orientation/consciousness: patient oriented x3 Limitations: no limitations Resp: Effort & Inspection: normal respiratory effort Cardio: Rate: regular rate Rhythm: regular rhythm GI: Inspection: non-distended Skin: General skin exam: normal color Wounds: wounds noted (incision left hip C/D/I ) Neuro: General: patient oriented x3 Extrem: Left lower extremity: hip/thigh Details: tenderness Location: of the hip Location: laterally and anteriorly, swelling (thigh soft ) Location: of the hip (lateral. ), abnormal ROM (limitations with internal/external rotation and flexion/extension due to recent surgical intervention ) and other (incision lateral hip c/d/i. ), knee Details: normal to inspection and normal ROM; no tenderness and no swelling, lower leg (Negative Swapna's Sign ) Details: no edema, ankle (+ankle dorsiflexion/plantarflexion ) Details: normal to inspection, no edema and normal ROM; no tenderness, no swelling and no warmth and foot Details: normal capillary refill, toes with normal ROM, vascular exam Details: dorsalis pedis pulse present and motor-sensory exam light-touch normal in all toes; no tenderness, no ecchymosis and no crepitus Psych: Mental Status: mental status grossly normal Affect: normal affect DS: Data Data Completed and Pending Labs on day of discharge: Labs from last 24 hours 10/31/21 10/31/21 10/31/21 13:53 12:25 09:19 WBC RBC Hgb Hct MCV MCH MCHC RDW Plt Count MPV Immature Gran % (Auto) Neut % (Auto) Lymph % (Auto) [place] % (Auto) Eos % (Auto) Baso % (Auto) Lymph # (Auto) [place] # (Auto) Eos # (Auto) Baso # (Auto) Abs Immat Gran (auto) Absolute Neuts (auto) Absolute Nucleated RBC Nucleated RBC % Sodium Potassium 4.0 Chloride Carbon Dioxide Anion Gap BUN Creatinine Estim Creat Clear Calc Estimated GFR Glucose POC Capillary Glucose 181 H 265 H Calcium Magnesium 10/31/21 10/31/21 10/31/21 05:05 05:05 05:05 WBC 15.1 H RBC
== END 2021-10-31 18:00 | disposition home health service (06) ==
LOC: ANHSURGERY 09:30 → ANH2MED 12:20
PROVIDERS: Internal Medicine; PCP Family Medicine; Visit Provider Orthopaedic Surgery
PROC: (CPT 27130; principal; 2021-10-30 07:30)
DX: M16.12 Unilateral primary osteoarthritis, left hip (principal); M17.11 Unilateral primary osteoarthritis, right knee; M25.552 Pain in left hip; F41.9 Anxiety disorder, unspecified; F32.A Depression, unspecified; Z85.828 Personal history of other malignant neoplasm of skin; I10 Essential (primary) hypertension; K57.30 Diverticulosis of large intestine without perforation or abscess without bleeding; M79.7 Fibromyalgia; K58.0 Irritable bowel syndrome with diarrhea; E78.2 Mixed hyperlipidemia; N39.41 Urge incontinence; Z87.891 Personal history of nicotine dependence; Z79.84 Long term (current) use of oral hypoglycemic drugs; R30.0 Dysuria; N39.0 Urinary tract infection, site not specified; E87.6 Hypokalemia; Z79.51 Long term (current) use of inhaled steroids; E66.9 Obesity, unspecified; Z68.34 Body mass index [BMI] 34.0-34.9, adult; K21.9 Gastro-esophageal reflux disease without esophagitis
CPT/HCPCS: 27130; 20610; 36415; 73502; 80048; 80307; 81001; 82040; 82948; 83735; 84132; 85025; 85610; 85730; 86850; 86900; 86901; 87077; 87081; 87086; 87186; 93351; 97110; 97116; 97161; 97165; 97530; 97535; A9270; C1776; J0171; J0690; J0696; J1040; J1100; J1170; J1815; J1885; J1956; J2250; J2270; J2370; J2405; J2704; J2710; J2795; J3010; J3475; J3480; J7040; J7120

== ENCOUNTER 2021-11-04 12:36 | Outpatient (NON) | payer MEDICARE, SELFPAY ==
[2021-11-04 19:23] LABS: Anion Gap 9 mmol/L (8-16); Blood Urea Nitrogen 21 mg/dL (7-17); Calcium 9.4 mg/dL (8.4-10.2); Carbon Dioxide 29 mmol/L (22-30); Chloride 99 mmol/L (98-107); Estimated Glomerular Filt Rate > 60; Glucose 126 mg/dL (65-110); Potassium 4.1 mmol/L (3.4-5.0); Sodium 137 mmol/L (137-145)
== END 2021-11-04 12:37 | disposition home or self-care (01) ==
PROVIDERS: PCP Family Medicine; Visit Provider Orthopaedic Surgery
DX: I10 Essential (primary) hypertension (principal); E11.9 Type 2 diabetes mellitus without complications; Z96.642 Presence of left artificial hip joint; Z47.1 Aftercare following joint replacement surgery
CPT/HCPCS: 80048

== ENCOUNTER 2021-12-05 09:59 | Outpatient (CLI) | payer MEDICARE, SELFPAY ==
[2021-12-05 10:38] LABS: Appearance Urine Clear (Clear); Bilirubin Urine Negative (Negative); Blood Urine Negative (Negative); Color Urine Yellow (Yellow); Glucose Urine UA 3+ mg/dL (Negative); Ketones Urine Negative (Negative); Leukocyte Esterase Ur Trace LEU/UL (Negative); Nitrate Urine Negative (Negative); Protein Urine Negative (Negative); Specific Grav Ur 1.015 (1.001-1.035); Urobilinogen Urine 0.2 mg/dL (<2.0)
[2021-12-05 10:47] LABS: Add Urine Microscopic? YES; RBC Urine 0-2 /hpf (0-2); Squamous Epithelial Cell Urine Occasional /hpf (Few)
== END 2021-12-05 10:00 | disposition home or self-care (01) ==
PROVIDERS: PCP Family Medicine; Visit Provider Orthopaedic Surgery
DX: N39.0 Urinary tract infection, site not specified (principal)
CPT/HCPCS: 81001; 87086; 87088; 97035; 97110; 97140

== ENCOUNTER 2021-12-17 08:13 | Outpatient (CLI) | payer MEDICARE, SELFPAY ==
--- NOTE | ~2021-12-17 | MM_ITS ---
EXAMINATION: MM screening [facility] BI w cuauhtemoc HISTORY: Screening TECHNIQUE: Craniocaudal and mediolateral oblique 3-D tomosynthesis images were obtained and synthetic 2-D images were generated. CAD analysis was submitted and interpreted. COMPARISON: Comparison to multiple prior studies sequentially, with oldest reviewed study dated 12/08. BREAST PARENCHYMAL COMPOSITION: There are scattered areas of fibroglandular density. FINDINGS: There is no evidence of suspicious mass, calcification, or architectural distortion to sugg est malignancy in either breast. There has been no suspicious interval change. IMPRESSION: 1. No mammographic evidence of malignancy. 2. Recommend routine screening mammography in one year. BI-RADS Category 1: Negative Reviewed, dictated and finalized at location A.
== END 2021-12-17 08:14 | disposition home or self-care (01) ==
PROVIDERS: PCP Family Medicine; Visit Provider Family Medicine
DX: Z12.31 Encounter for screening mammogram for malignant neoplasm of breast (principal)
CPT/HCPCS: 77063; 77067

== ENCOUNTER 2022-01-14 14:14 | Outpatient (CLI) | payer MEDICARE, SELFPAY ==
--- NOTE | 2022-01-15 13:33 | WPDPFTINT ---
PFT Procedure Performed PFT Procedure Performed Spirometry with Pre/Post Bronchodilator Plethysmography (Lung Vol) Diffusing Cap (DLCO) Flow Vol Loop PFT Interpretation Lung volumes were measured with the body plethysmography method. Lung volumes are unremarkable. Spirometry showed normal expiratory flow rates and a normal FEV1 to FVC ratio of 79%. Following administration of a bronchodilator there was no significant change in the expiratory flow rates. Lung diffusion capacity is within the normal range at 81% predicted. The flow volume loop is unremarkable. Impression:. Spirometry, lung volumes, and lung diffusing capacity all within the normal range
== END 2022-01-14 14:15 | disposition home or self-care (01) ==
PROVIDERS: PCP Family Medicine; Visit Provider Physician Assistant
DX: R06.00 Dyspnea, unspecified (principal)
CPT/HCPCS: 94060; 94726; 94729

== ENCOUNTER 2022-01-16 08:30 | Outpatient (RCR) | payer MEDICARE, SELFPAY ==
--- NOTE | 2021-11-27 11:30 | PTOPEVAL1 ---
Assessment and note entered by Sherron Miles, PT Evaluation Information Diagnosis L hip pain Onset 11-21-21 Subjective Information started doing more activity and having pain in hip ; have had [facility] PT and d/c last week; is doing the exercises from [facility] PT for L hip; Reported Pain Level Pain Score Self Report L hip range 1-5/10 Additional Pain Score Comments stiff when wake up in the morning; dull, ache pain ; sharp pain with standing to sitting position change; can sleep OK, still little sore when lie on L side ice, heat, arthritis tylenol help her hip pain; Assessment PT Clinical Summary Jihan has the diagnosis of L hip pain. She is s/p L THR 4 wk ago and L TKR in Apr 2021. Her history includes chronic back pain, fibromyalgia and spasms of her muscles. Prior to her surgery, she was doing regular fitness exercises with aquatic walking and exercises. She is using the wheeled walker for mobility and is WBAT on her L LE, and still has the hip precautions. With the evaluation, she has tightness of L hamstring, anterior hip/quad and ITB with weakness of hip abduction. There are also palpable spasms and tenderness over above areas of tightness. Skilled PT services are indicated for therapeutic exercises and activities to increase L hip flexibility and strength, observing the THR precautions; modalities for pain control and education for home exercises. Plan of Care Interventions Electrical Stimulation,Gait Training,Hot Pack/Cold Pack,Manual Therapy,Neuro Re-education,Patient/ Caregiver Education,Therapeutic Activities, Therapeutic Exercise,Ultrasound PT Services Indicated Yes Treatment Frequency and 2x/wk for 3 weeks Duration These treatments will address the objective and functional deficits as defined above. The patient will be advanced safely and appropriately in order for the patient to progress towards his/her prior level of function. Additional exercises will be introduced and as well as a comprehensive home exercise program upon discharge, if needed, ?to ensure carryover of functional gains achieved in the clinic. This treatment plan has been reviewed and agreement upon by the patient.
--- NOTE | 2021-12-20 08:45 | PTOPPROG ---
Assessment and note entered by Sherron Miles, PT Evaluation Information Assessment Status Progress Diagnosis L hip pain Onset 11-21-21 Subjective Information Jihan reports: since coming for therapy is better, but still having pain under knee cap and middle of butt cheek is awful--worse when first wake up in AM have a hard time getting up out of bed; tape and US helped; tender and hurts over scar area; have an appt with primary next week; Assessment PT Clinical Summary Jihan has received 7 PT sessions. Compared to the initial evaluation: pain has increased from -07/16 to 2-09/15; continues to have spasms and tenderness over L quad, ITB, hamstring and medial-upper thigh; 5 reps sit/ stand improved by 1 sec; 2 minute walking distance has decreased by 25', but using a cane instead of wheeled walker; reported activity tolerance is about the same; increase strength of L hip/knee; increase flexibility of hamstring and anterior hip /quad; She is motivated, doing her home exercises and going to the [facility] for aquatic exercises. The goals were partially achieved. Continue PT; discussed with pt to follow up with her dr for continued spasms and pain. Plan of Care Interventions Hot Pack/Cold Pack,Manual Therapy,Neuro Re- education,Patient/Caregiver Education,Therapeutic Activities,Therapeutic Exercise PT Services Indicated Yes Treatment Frequency and 2x/wk for 4 weeks Duration These treatments will address the objective and functional deficits as defined above. The patient will be advanced safely and appropriately in order for the patient to progress towards his/her prior level of function. Additional exercises will be introduced and as well as a comprehensive home exercise program upon discharge, if needed, ?to ensure carryover of functional gains achieved in the clinic. This treatment plan has been reviewed and agreement upon by the patient.
--- NOTE | 2022-01-16 09:17 | PTOPDC ---
Assessment and note entered by Sherron Miles, PT Evaluation Information Assessment Status Discharge Diagnosis L hip pain Onset 11-21-21 Subjective Information Jihan reports: have been doing pool exercises- really like the water, leg feels better in the water; leg has improved quite a bit, not as tight in ITB, but it will not break loose and stop hurting; have an Old stim unit at home; her follow up appointment with the dr is in March; today, she is not feeling well, has the start of a migraine. She agrees to discharge from PT services. Reported Pain Level Pain Score Self Report Additional Pain Score Comments pain range of 2-6/10; tight, throb, ache L butt cheek, lateral hip and lateral thigh/ITB; also pain distal patella area; tolerance stand/walk 10- 15 min then pain increase; decrease pain with sit rest, heat, ice, stim, tape, muscle relaxer; discussed pain control with pt, home stim-need a new unit; Assessment PT Clinical Summary Jihan has received 15 PT sessions. Compared to the last reevaluation: pain rating at the low rating is the same and high rating decreased from 7 to 6/10; she is the same with: reported standing/walking tolerance, flexibility of L hamstring and anterior hip/quad, side lying hip abduction strength/reps, 5 reps sit/stand time and 2 minute walking distance; She continues to have spasms and tenderness over L buttock, lateral hamstring, quad and ITB. Jihan is independent with her home exercise program and has methods to manage her pain. The goals were partially met. Discharge PT services. Plan of Care PT Services Indicated No
== END 2022-01-16 13:52 | disposition home or self-care (01) ==
LOC: ANHPT 08:30
PROVIDERS: PCP Family Medicine; Referring Provider Orthopaedic Surgery; Visit Provider Orthopaedic Surgery
DX: Z47.1 Aftercare following joint replacement surgery (principal); M25.552 Pain in left hip; Z96.642 Presence of left artificial hip joint
CPT/HCPCS: 97014; 97035; 97110; 97112; 97140; 97161; 97530; G0283

== ENCOUNTER 2022-02-03 09:01 | Outpatient (CLI) | payer MEDICARE, SELFPAY ==
--- NOTE | ~2022-02-03 | DEXA_ITS ---
Bone Density Report Name: MAZIN DOBSON Age: 66 Sex: Female Ethnicity: White Date of : 1955 Indication: postmenopausal; screening for osteoporosis; height loss; asthma or emphysema; Referring Provider: EARNEST PERDUE Study: Bone densitometry was performed. Exam Date: February 03, 2022 Accession number: [id number] Bone Density: Region BMD T-score Z-score Classification AP Spine(L1-L4) 1.080 0.3 2.1 Normal Femoral Neck (Right) 0.794 -0.5 1.0 Normal Total Hip (Right) 0.831 -0.9 0.3 Normal World Health Organization criteria for BMD impression classify patients as: Normal (T-score at or above -1.0), Osteopenia (T-score between -1.0 and -2.5), or Osteoporosis (T-score at or below -2.5). 10-year Fracture Risk: FRAX not reported because: All T-scores for Spine Total, Hip Total, Femoral Neck at or above -1.0 Treated for osteoporosis Clinical Information Provided by Patient: Is being treated for osteoporosis Has used the following medications: Vitamin D Has the following medical conditions: Asthma or Emphysema Patient maximum height was 67.5 Menopause Age: 49 Drinks caffeinated beverages Onset of menses at age 12 Number of children 2 Impression: The patient has normal bone mass. Discussion: It is important to ask patients whether they are taking their medications and to encourage continued and appropriate compliance with their osteoporosis therapies to reduce fracture risk. It is also important to review their risk factors and encourage appropriate calcium and vitamin D intakes, exercise, fall prevention and other lifestyle measures. Follow-Up: Consider a repeat BMD and Vertebral Fracture Assessment (VFA) exam in 2 years or sooner if medically necessary, to reassess this patient's status. Reported by: [facility] on 02/03/2022 9:16:00 AM. Reviewed, dictated and finalized at location [facility]
== END 2022-02-03 09:02 | disposition home or self-care (01) ==
LOC: ANHIMG 09:02
PROVIDERS: PCP Family Medicine; Visit Provider Physician Assistant
DX: Z78.0 Asymptomatic menopausal state (principal)
CPT/HCPCS: 77080

== ENCOUNTER 2023-03-24 10:05 | Outpatient (CLI) | payer MEDICARE, SELFPAY ==
[2023-03-24 19:50] LABS: Alanine Aminotransferase 19 U/L (6-35); Albumin Level 4.1 g/dL (3.5-5.1); Alkaline Phosphatase 75 U/L (38-126); Anion Gap 7 mmol/L (8-16); Aspartate Amino Transferase 36 U/L (14-36); Bilirubin,Total 0.4 mg/dL (0.2-1.3); Blood Urea Nitrogen 22 mg/dL (7-17); Calcium 9.3 mg/dL (8.4-10.2); Carbon Dioxide 30 mmol/L (22-30); Chloride 101 mmol/L (98-107); Estimated Glomerular Filt Rate 55; Glucose 101 mg/dL (65-110); Sodium 138 mmol/L (137-145)
[2023-03-24 20:25] LABS: Creatinine Urine 142.9 mg/dL
[2023-03-24 20:29] LABS: MALB Creatinine Ratio 7.6 mg/g (0-30); Microalbumin Urine Random 10.8 mg/L (0-16.7)
[2023-03-24 21:07] LABS: Hemoglobin A1C 5.3 % (<5.7)
== END 2023-03-24 10:06 | disposition home or self-care (01) ==
LOC: ANHGOSHLAB 10:07
PROVIDERS: PCP Family Medicine; Visit Provider Family Medicine
DX: E11.9 Type 2 diabetes mellitus without complications (principal)
CPT/HCPCS: 36415; 80053; 82043; 83036

== ENCOUNTER 2023-05-06 12:45 | Outpatient (CLI) | payer MEDICARE, SELFPAY ==
--- NOTE | ~2023-05-06 | XR_ITS ---
EXAMINATION: XR lumbar spine min 4V DATE: 05/06/2023 13:07 INDICATION: Right-sided sciatica TECHNIQUE: Anteroposterior, lateral, and bilateral oblique views of the lumbar spine, and cone-down l ateral view of the lumbosacral junction were obtained. COMPARISON: 10/31/2015 FINDINGS: There is approximately 20 % loss of anterior vertebral body height at L5. The lumbar verteb ral body heights are otherwise normal. There is severe loss of intervertebral disc space height at L1 -2. There are 4 mm of anterolisthesis of L5 on S1. There is severe facet joint osteoarthritis at L4-5 and L5-S1. There are 15 degrees of lumbar levoscoliosis. IMPRESSION: 1. Age-indeterminate compression fracture of L5 with approximately 20% loss of anterior vertebral bod y height. 2. Moderate lumbar spondylosis. Reviewed, dictated and finalized at location [facility]. [employer] IMPRESSION: 1. Age-indeterminate compression fracture of L5 with approximately 20% loss of anterior vertebral body height. 2. Moderate lumbar spondylosis.
== END 2023-05-06 12:46 | disposition home or self-care (01) ==
PROVIDERS: PCP Family Medicine; Visit Provider Family Medicine
DX: M54.31 Sciatica, right side (principal); M43.06 Spondylolysis, lumbar region; R29.890 Loss of height; S32.050A Wedge compression fracture of fifth lumbar vertebra, initial encounter for closed fracture; X58.XXXA Exposure to other specified factors, initial encounter
CPT/HCPCS: 72110

== ENCOUNTER 2023-05-13 11:20 | Outpatient (CLI) | payer MEDICARE, SELFPAY ==
--- NOTE | ~2023-05-13 | MR_ITS ---
MRI of the lumbar spine Clinical History: Sciatica Technique: Axial T2-weighted images, and sagittal T1-weighted, T2-weighted, and T2 fat-sat images wer e acquired. Findings: No fracture identified. There is 4 mm retrolisthesis of L1 over L2. There is 4 mm retrolist hesis of L2 over L3. There is 5 mm anterolisthesis of L4 over L5. There is 4 mm anterolisthesis of L5 over S1. No suspicious bone marrow signal abnormality seen. At L1-L2, there is moderate degenerative disc narrowing. There is minimal disc bulge and mild to mode rate facet arthropathy. No central canal stenosis. There is mild to moderate bilateral neural foramin al narrowing. At L2-L3, there is mild degenerative disc narrowing. There is minimal disc bulge with moderate facet arthropathy. No central canal stenosis. There is mild to moderate right neural foraminal narrowing, a nd mild left neural foraminal narrowing. At L3-L4, there is minimal disc bulge and moderate to advanced facet arthropathy. No central canal st enosis or neural foraminal narrowing. At L4-L5, disc bulge and advanced facet arthropathy are present. No central canal stenosis. Neural fo ramina are preserved. At L5-S1, there is disc bulge with advanced facet arthropathy. No central canal stenosis. There is se eladio bilateral neural foraminal narrowing, left worse than right. Paravertebral soft tissues are unremarkable. 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 Mild degenerative spondylosis overall, as above. Reviewed, dictated and finalized at [facility]. 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 Mild degenerative spondylosis overall, as above.
== END 2023-05-13 11:21 ==
LOC: GOSHIMG 11:24
PROVIDERS: PCP Family Medicine; Visit Provider Family Medicine
DX: M43.16 Spondylolisthesis, lumbar region (principal); M54.30 Sciatica, unspecified side
CPT/HCPCS: 72148

== ENCOUNTER 2023-11-15 03:57 | Observation (INO) | payer MEDICARE, SELFPAY ==
[2023-11-15] VITALS (30 sets, daily range): BP systolic 82–121; BP diastolic 40–74; PULSE 60–99; RESP 13–20; TEMP 35.7–37.1; O2SAT 95–100; BMI 24.3
--- NOTE | ~2023-11-15 | CT_ITS ---
CT of the Abdomen and Pelvis: Indication: Abdominal pain Technique: 2.5 mm axial scans were obtained through the abdomen and pelvis following intravenous adm inistration of 100 cc of Omnipaque 350. Dose reduction technique was used on this scan by utilizing a utomated exposure control and iterative reconstruction technique. The dose-length product (DLP) was 3 18.21 mGy-cm. Findings: Scans through the lung bases are unremarkable. The liver, spleen, pancreas, gallbladder, adrenals and kidneys are within normal limits. No evidence of aortic aneurysm. No lymphadenopathy. No bowel obstruction or bowel wall thickening. There is no evidence to suggest acute appendicitis. Images through the pelvis are mildly degraded by streak artifact from left hip arthroplasty. Urinary bladder unremarkable. No pelvic mass seen. No ascites. Impression: No significant abnormalities seen. Reviewed, dictated and finalized at [facility]. Impression: No significant abnormalities seen.
--- NOTE | 2023-11-15 04:42 | ED.GIBLEED ---
HPI - GI Bleed General Chief complaint: GI Bleed Stated complaint: Bloody diarrhea, dizzy, fall-left hand pain Time Seen by Provider: 11/15/23 04:32 History of Present Illness HPI Narrative: 68-year-old female presenting with rectal bleeding. Patient states that she woke up 2 nights ago and had an episode of bright red bloody diarrhea. States that she had some abdominal discomfort prior to the episode which then resolved after the bowel movement. She then felt fine until tonight when she again woke up from sleep with some abdominal cramping and the urge to defecate. She again had bloody diarrhea, states that is now maroon. States that she had an episode of lightheadedness earlier that caused her to lose her balance and fall. Did not strike her head or lose consciousness. Currently she denies complaints. States that she had a colonoscopy a few years ago and had 1 polyp removed. No infectious symptoms. No further complaints. Related Data Home Medications Medication Instructions Recorded Confirmed Glucosamine Chondroitin 2 cap PO BID 03/06/21 11/16/23 cholecalciferol (vitamin D3) 125 125 mcg PO DAILY 03/06/21 11/16/23 mcg (5,000 unit) tablet (Vitamin D3) krill 500 mg-omega 3 115 mg-dha 30 1 cap PO DAILY 03/06/21 11/16/23 mg-epa 64 [id number] capsule (MegaRed [place]-3 Krill Oil) magnesium oxide 400 mg PO DAILY 03/06/21 11/16/23 mecobalamin (vitamin B12) 5,000 5,000 mcg PO DAILY 03/06/21 11/16/23 mcg lozenge methylcellulose (laxative) 500 mg 500 mg PO DAILY 03/06/21 11/16/23 tablet (Citrucel) potassium 99 mg tablet 99 mg PO DAILY 03/06/21 11/16/23 acetaminophen 650 mg 1,300 mg PO Q12H PRN Pain 10/22/21 11/16/23 tablet,extended release (Tylenol Arthritis Pain) ascorbic acid (vitamin C) 2,000 mg 2,000 mg PO DAILY 10/22/21 11/16/23 tablet,extended release aspirin 81 mg tablet,delayed 81 mg PO DAILY 10/22/21 11/16/23 release (Adult Low Dose Aspirin) zinc 50 mg tablet 50 mg PO DAILY 10/22/21 11/16/23 ertugliflozin 15 mg tablet 15 mg PO DAILY 11/16/23 11/16/23 (Steglatro) famotidine 20 mg tablet 40 mg PO HS 11/16/23 11/16/23 gabapentin 300 mg capsule 600 mg PO HS 11/16/23 11/16/23 tizanidine 2 mg tablet 2 mg PO TID PRN muscle spasms 11/16/23 11/16/23 triamcinolone acetonide 0.1 % 1 applic topical QID PRN Rash 11/16/23 11/16/23 topical cream Allergies Allergy/AdvReac Type Severity Reaction Status Date / Time amoxicillin AdvReac Severe rash Verified 11/15/23 04:04 clindamycin AdvReac Severe Heartburn Verified 11/15/23 04:04 celecoxib AdvReac Intermediate Skin Verified 11/15/23 04:04 Reaction empagliflozin AdvReac Intermediate Diarrhea Verified 11/15/23 04:04 lisinopril AdvReac Intermediate Cough Verified 11/15/23 04:04 metformin AdvReac Intermediate Diarrhea Verified 11/15/23 04:04 sitagliptin AdvReac Intermediate DIARRHEA Verified 11/15/23 04:04 Review of Systems Review of Systems: All systems reviewed & are unremarkable except as noted in HPI and below PMFSH Past Medical History Medical History (Updated 11/19/23 @ 21:09 by Camila Melendez MD) Acute blood loss anemia Anxiety and depression Basal cell carcinoma of skin, unspecified Benign neoplasm of colon Breast cancer screening Chronic right hip pain Compression fracture of spine Degenerative joint disease of left hip Degenerative joint disease of left hip Diverticulosis of colon (without mention of hemorrhage) Dry eye Dystrophic nail Dysuria Essential (primary) hypertension Fibromyalgia GIB (gastrointestinal bleeding) Glossitis Hip pain, bilateral Hypokalemia Intertriginous dermatitis associated with moisture Irritable bowel syndrome with diarrhea Left hip pain Left knee DJD Major depressive disorder, single episode, unspecified Mixed hyperlipidemia Obesity, Class I, BMI 30-34.9 Other specified diabetes mellitus without complications Panniculitis Preoperative testing Primary osteoarthritis of both knees Rectal
[2023-11-15] MEDS: SODIUM CHLORIDE 0.9% IV 1,000 ML 999 ML IV CONT ×2 (04:52→06:42)
[2023-11-15 04:58] LABS: Basophils Percent Auto 0.4 % (0.2-1.2); Eosinophils Absolute Auto 0.2 K/mm3 (0-0.3); Eosinophils Percent Auto 2.8 % (0-4.4); Hemoglobin 8.4 g/dL (12.0-15.0); Immature Granulocyte Absolute 0.02 K/mm3 (0.00-0.031); Immature Granulocyte Percent A 0.4 % (0-0.5); Lymphocytes Percent Auto 37.1 % (18.3-44.2); Mean Corpuscular HGB Conc 32.3 g/dl (32-36); Mean Corpuscular Hemoglobin 31.3 pg (26-34); Mean Platelet Volume 12.1 fl (7.4-10.4); Monocytes Absolute Auto 0.6 K/mm3 (0.1-0.6); Monocytes Percent Auto 10.6 % (2.6-8.5); Neutrophils Absolute Auto 2.8 K/mm3 (1.3-6.7); Neutrophils Percent Auto 48.7 % (45.5-73.1); Platelet Count Result 172 k/mm3 (150-375); Red Blood Count 2.68 M/mm3 (4.2-5.4); Red Cell Distribution Width 13.2 % (11.5-14.5); White Blood Count 5.7 K/mm3 (4.5-10.0)
[2023-11-15 05:13] LABS: Lipase 95 U/L (23-300)
[2023-11-15 05:15] LABS: Alanine Aminotransferase 14 U/L (6-35); Albumin Level 3.3 g/dL (3.5-5.1); Alkaline Phosphatase 59 U/L (38-126); Anion Gap 8 mmol/L (4-12); Aspartate Amino Transferase 21 U/L (14-36); Bilirubin,Total 0.1 mg/dL (0.2-1.3); Blood Urea Nitrogen 28 mg/dL (7-17); Calcium 8.6 mg/dL (8.4-10.2); Carbon Dioxide 23 mmol/L (22-30); Chloride 107 mmol/L (98-107); Estimated CRCL calculation 50 ml/min; Estimated Glomerular Filt Rate > 60; Glucose 69 mg/dL (65-110); INR 1.1; Lactic Acid Reflex 1.9 mmol/L (0.7-2.0); Partial Thromboplastin Time 28.6 Seconds (22.3-36.8); Potassium 3.8 mmol/L (3.4-5.0); Prothrombin Time 14.5 Seconds (11.1-14.7); Sodium 138 mmol/L (137-145)
[2023-11-15 06:26] LABS: Add Urine Microscopic? NO; Appearance Urine Clear (Clear); Bilirubin Urine Negative (Negative); Blood Urine Negative (Negative); Color Urine Yellow (Yellow); Glucose Urine UA Negative (Negative); Ketones Urine Negative (Negative); Leukocyte Esterase Ur Negative LEU/UL (Negative); Nitrate Urine Negative (Negative); Protein Urine Negative (Negative); Specific Grav Ur 1.013 (1.001-1.035); Urobilinogen Urine 0.2 mg/dL (<2.0); pH Urine 5.5 (5.0-9.0)
[2023-11-15] MEDS: SODIUM CHLORIDE 0.9% IV 250 ML 30 ML IV CONT ×2 (07:44→12:55)
[2023-11-15] MEDS: TUBING, BLOOD SET 1 EACH XX (07:45)
--- NOTE | 2023-11-15 07:58 | PC.NURSE ---
Pt states dizziness has resolved. Pt denies current complaints, resting comfortably.
[2023-11-15] MEDS: PANTOPRAZOLE SODIUM IV 40 MG VIAL 80 MG IV PUSH (09:00)
[2023-11-15 10:58] LABS: Hematocrit 21.6 % (37.0-47.0)
--- NOTE | 2023-11-15 11:00 | ADMGEN ---
This patient, Jihan Villalta, was admitted to IMU Room 202-. Patient/family oriented to hospital policies and general routines including ID bracelet, bed and alarms, visiting hours, pain management, procedures, bathroom and other care routines, personal items, smoking policy, room service/diet, and visiting hours. Information on how to activate the Rapid Response Team has been discussed. Patient/Family are encouraged to report perceived risks to care and to ask questions if they do not understand what they are told or what they should do.
[2023-11-15] MEDS: SODIUM CHLORIDE 0.9% IV 1,000 ML 75 ML IV CONT (12:32)
--- NOTE | 2023-11-15 12:58 | WPDGICN ---
Assessment and Plan Assessment and plan (1) GIB (gastrointestinal bleeding): Code(s): K92.2 - Gastrointestinal hemorrhage, unspecified Status: Acute Assessment and Plan: symptomatic anemia with drop in h/h s/p blood transfusion most likely diverticular source (noted several last time when had colonoscopy) but also mild elevated bun will plan to do colonoscopy/egd tomorrow, check for source ? diverticula, pud, etc (2) Rectal bleeding: Code(s): K62.5 - Hemorrhage of anus and rectum Status: Acute Assessment and Plan: monitor for more signs of bleeding (3) Acute blood loss anemia: Code(s): D62 - Acute posthemorrhagic anemia Status: Acute Assessment and Plan: keep hgb>7 (4) Diverticulosis of colon (without mention of hemorrhage): Code(s): K57.30 - Diverticulosis of large intestine without perforation or abscess without bleeding Status: Acute (5) GERD (gastroesophageal reflux disease): Code(s): K21.9 - Gastro-esophageal reflux disease without esophagitis Status: Acute Assessment and Plan: on ppi dialy she does not remember having egd, will do one tomorrow GI Consult Note Consult date/time: 11/15/23 12:58 Reason for consult: rectal bleeding HPI: Jihan Villalta is a 68 year old female with history of HTN, GERD on protonix, colon diverticulosis with last colonoscopy 2021 (also had small polyp). She is here with new onset of rectal bleeding, first episode after waking up 2 nights ago and noted bright red bloody diarrhea then with some abdominal discomfort. Finally earlier again woke up from sleep with same moderate abdominal cramping and urge to defecate, had another bloody diarrhea maroon color and was feeling lightheaded then lost her balance after getting up. Since had another [address] scan reviewed, no major findings. Hgb down to 8.4 and repeat 7 (baseline is normal), she got one unit prbc, never had similar episodes and never required transfusion. Only using baby aspirin. Review of Systems Constitutional: Constitutional: Denies chills Eyes: Eyes: Denies blurry vision ENT: Reports Normal hearing present and Denies neck pain Cardiovascular: Cardiovascular: Denies chest pain Respiratory: Respiratory: Denies cough Gastrointestinal: Gastrointestinal: Reports hematochezia Genitourinary: Genitourinary: Denies dysuria Musculoskeletal: Musculoskeletal: Denies neck pain Integumentary/Breasts: Skin/Breast: Denies dry skin Neurologic: Reports Normal hearing present Psychiatric: Psychiatric: Denies anxiety Endocrine: Endocrine: Denies change in body appearance Allergic/Immunologic: Allergic/Immunologic: Denies urticaria PMFSH Past Medical History Medical History (Updated 11/15/23 @ 13:03 by Boris Mullen MD) Acute blood loss anemia Anxiety and depression Basal cell carcinoma of skin, unspecified Benign neoplasm of colon Breast cancer screening Chronic right hip pain Compression fracture of spine Degenerative joint disease of left hip Degenerative joint disease of left hip Diverticulosis of colon (without mention of hemorrhage) Dry eye Dystrophic nail Dysuria Essential (primary) hypertension Fibromyalgia GIB (gastrointestinal bleeding) Glossitis Hip pain, bilateral Hypokalemia Intertriginous dermatitis associated with moisture Irritable bowel syndrome with diarrhea Left hip pain Left knee DJD Major depressive disorder, single episode, unspecified Mixed hyperlipidemia Obesity, Class I, BMI 30-34.9 Other specified diabetes mellitus without complications Panniculitis Preoperative testing Primary osteoarthritis of both knees Rectal bleeding Rectal polyp Right knee DJD Urge incontinence UTI (urinary tract infection) Vulvitis Surgical History Surgical History History of total left hip arthroplasty History of total left knee replacement (TK
[2023-11-15] MEDS: TUBING, BLOOD PLUM PUMP TUBING 1 EACH XX (13:32)
--- NOTE | 2023-11-15 13:38 | PM.IMHP ---
H&P: HPI History of Present Illness Date/Time: 11/15/23 13:38 Chief Complaint: GI bleed Narrative: 68-year-old female presenting with rectal bleeding. Patient states that she woke up 2 nights ago and had an episode of bright red bloody diarrhea. States that she had some abdominal discomfort prior to the episode which then resolved after the bowel movement. She then felt fine until tonight when she again woke up from sleep with some abdominal cramping and the urge to defecate. She again had bloody diarrhea, states that is now maroon. States that she had an episode of lightheadedness earlier that caused her to lose her balance and fall. Did not strike her head or lose consciousness. Currently she denies complaints. States that she had a colonoscopy a few years ago and had 1 polyp removed. findings of diverticulosis and internal hemorrhoids were also there. No infectious symptoms. No further complaints. Review of Systems Review of Systems: - CONSTITUTIONAL: Denies weight loss, fever and chills. - HEENT: Denies changes in vision and hearing - RESPIRATORY: Denies SOB and cough. - CV: Denies palpitations and CP. - GI: Denies abdominal pain, nausea, vomiting and reports bloody diarrhea - : Denies dysuria and urinary frequency. - MSK: Denies myalgia and joint pain. - SKIN: Denies rash and pruritus. - NEUROLOGICAL: Denies headache and syncope. reports dizziness and fall - PSYCHIATRIC: Denies recent changes in mood. Denies anxiety and depression. [facility] Past Medical History Medical History (Updated 11/15/23 @ 13:39 by Riccardo Santillan MD) Acute blood loss anemia Anxiety and depression Basal cell carcinoma of skin, unspecified Benign neoplasm of colon Breast cancer screening Chronic right hip pain Compression fracture of spine Degenerative joint disease of left hip Degenerative joint disease of left hip Diverticulosis of colon (without mention of hemorrhage) Dry eye Dystrophic nail Dysuria Essential (primary) hypertension Fibromyalgia GIB (gastrointestinal bleeding) Glossitis Hip pain, bilateral Hypokalemia Intertriginous dermatitis associated with moisture Irritable bowel syndrome with diarrhea Left hip pain Left knee DJD Major depressive disorder, single episode, unspecified Mixed hyperlipidemia Obesity, Class I, BMI 30-34.9 Other specified diabetes mellitus without complications Panniculitis Preoperative testing Primary osteoarthritis of both knees Rectal bleeding Rectal polyp Right knee DJD Urge incontinence UTI (urinary tract infection) Vulvitis Surgical History Surgical History History of total left hip arthroplasty History of total left knee replacement (TKR) S/P total hip arthroplasty Family History Family History Father Family history of Alzheimer's disease Mother Family history of diabetes mellitus in first degree relative Patient's mother is Diabetes mellitus Family history of cardiovascular disease Family history of arthritis Family history of malignant neoplasm of breast Family history of malignant neoplasm of kidney Grandparent Hypertension Family history of malignant neoplasm Sibling Malignant neoplasm of prostate Other Cerebrovascular accident Family history of heart disease in male family member before age 55 Family history of kidney stones Social History Social History Smoking packs per day: 0 Smoking cigarettes per day: 0.0 Years smoked: 1.5 Smoking pack-years: 0.00 Smoking status: Former smoker Tobacco type: cigarettes Smoking end date: 03/09/74 Additional smoking assessment comments: DENIES ANY FORM OF TOBACCO USE Alcohol intake: never Alcohol use details: STATES MAYBE 1 DRINK A YEAR Substance use: never Substance use type: does not u
[2023-11-15 17:07] LABS: Hematocrit 24.5 % (37.0-47.0); Hemoglobin 8.1 g/dL (12.0-15.0)
[2023-11-15] MEDS: polyethylene glycoL 3350 238 GM BOTTLE PO (17:50)
[2023-11-15] MEDS: BISACODYL 5 MG TABLET EC 20 MG PO (17:50)
[2023-11-15] MEDS: PANTOPRAZOLE SODIUM IV 40 MG VIAL IV PUSH (20:54)
[2023-11-15 22:56] LABS: Hematocrit 24.9 % (37.0-47.0); Hemoglobin 8.2 g/dL (12.0-15.0)
[2023-11-16] VITALS (23 sets, daily range): BP systolic 92–131; BP diastolic 42–78; PULSE 69–87; RESP 16–20; TEMP 36.1–37.4; O2SAT 97–100
[2023-11-16] MEDS: ONDANSETRON INJ 4 MG/2 ML VIAL IV PUSH (00:16)
[2023-11-16] MEDS: MAGNESIUM CITRATE 300 ML BTL PO ×2 (02:26→06:08)
[2023-11-16 05:11] LABS: Hemoglobin 8.2 g/dL (12.0-15.0)
[2023-11-16 05:12] LABS: Basophils Percent Auto 0.4 % (0.2-1.2); Eosinophils Absolute Auto 0.1 K/mm3 (0-0.3); Eosinophils Percent Auto 2.6 % (0-4.4); Hemoglobin 8.2 g/dL (12.0-15.0); Immature Granulocyte Absolute 0.01 K/mm3 (0.00-0.031); Immature Granulocyte Percent A 0.2 % (0-0.5); Lymphocytes Absolute Auto 2.29 K/mm3 (0.9-3.2); Mean Corpuscular HGB Conc 31.5 g/dl (32-36); Mean Corpuscular Hemoglobin 29.5 pg (26-34); Mean Corpuscular Volume 93.5 fl (80-100); Mean Platelet Volume 12.2 fl (7.4-10.4); Monocytes Absolute Auto 0.5 K/mm3 (0.1-0.6); Monocytes Percent Auto 8.6 % (2.6-8.5); Neutrophils Absolute Auto 2.4 K/mm3 (1.3-6.7); Neutrophils Percent Auto 45.2 % (45.5-73.1); Platelet Count Result 134 k/mm3 (150-375); Red Blood Count 2.78 M/mm3 (4.2-5.4); Red Cell Distribution Width 14.7 % (11.5-14.5); White Blood Count 5.3 K/mm3 (4.5-10.0)
[2023-11-16 05:26] LABS: Alanine Aminotransferase 13 U/L (6-35); Albumin Level 2.6 g/dL (3.5-5.1); Alkaline Phosphatase 50 U/L (38-126); Anion Gap 5 mmol/L (4-12); Aspartate Amino Transferase 19 U/L (14-36); Bilirubin,Total 0.2 mg/dL (0.2-1.3); Blood Urea Nitrogen 10 mg/dL (7-17); Calcium 8.3 mg/dL (8.4-10.2); Carbon Dioxide 20 mmol/L (22-30); Chloride 114 mmol/L (98-107); Estimated CRCL calculation 63 ml/min; Estimated Glomerular Filt Rate > 60; Glucose 91 mg/dL (65-110); Potassium 3.4 mmol/L (3.4-5.0); Sodium 139 mmol/L (137-145)
[2023-11-16 10:47] LABS: Hematocrit 25.1 % (37.0-47.0); Hemoglobin 8.2 g/dL (12.0-15.0)
--- NOTE | 2023-11-16 12:38 | WPDANESEPPF ---
Anes - Initial Pre Proc Eval Procedure: Operation Date: 11/16/23 15:00 Proposed Procedures p Esophagogastroduodenoscopy & Colonoscopy - Boris Mullen MD Date/Time: 11/16/23 12:38 Surgeon: Riccardo Santillan MD Pre Op Diagnosis: rectal bleeding Patient Data Age: 68 Gender: F Height: 1.68 m Weight: 68.5 kg Last Vital Signs Temp 97.9 F 11/16/23 11:18 Pulse 74 11/16/23 11:18 Resp 18 11/16/23 11:18 BP 117/78 11/16/23 11:26 Pulse Ox 97 11/16/23 11:18 O2 Del Method Room Air 11/16/23 04:00 Allergies Allergy/AdvReac Type Severity Reaction Status Date / Time amoxicillin AdvReac Severe rash Verified 11/15/23 04:04 clindamycin AdvReac Severe Heartburn Verified 11/15/23 04:04 celecoxib AdvReac Intermediate Skin Verified 11/15/23 04:04 Reaction empagliflozin AdvReac Intermediate Diarrhea Verified 11/15/23 04:04 lisinopril AdvReac Intermediate Cough Verified 11/15/23 04:04 metformin AdvReac Intermediate Diarrhea Verified 11/15/23 04:04 sitagliptin AdvReac Intermediate DIARRHEA Verified 11/15/23 04:04 Home Medications Medication Instructions Recorded Confirmed Type blood-glucose meter (OneTouch #1 ea 12/02/19 10/05/23 Rx Verio Flex Start kit) lancets (OneTouch UltraSoft #200 ea 12/02/19 10/05/23 Rx Lancets) Glucosamine Chondroitin 2 cap PO DAILY 03/06/21 10/05/23 History cholecalciferol (vitamin D3) 125 125 mcg PO DAILY 03/06/21 10/05/23 History mcg (5,000 unit) tablet (Vitamin D3) krill 500 mg-omega 3 115 mg-dha 30 1 cap PO DAILY 03/06/21 10/05/23 History mg-epa 64 [id number] capsule (MegaRed [place]-3 Krill Oil) magnesium oxide 400 mg PO DAILY 03/06/21 10/05/23 History mecobalamin (vitamin B12) 5,000 5,000 mcg PO DAILY 03/06/21 10/05/23 History mcg lozenge methylcellulose (laxative) 500 mg 500 mg PO DAILY 03/06/21 10/05/23 History tablet (Citrucel) potassium 99 mg tablet 99 mg PO DAILY 03/06/21 10/05/23 History acetaminophen 650 mg 1,300 mg PO Q12H PRN Pain 10/22/21 10/05/23 History tablet,extended release (Tylenol Arthritis Pain) ascorbic acid (vitamin C) 2,000 mg 2,000 mg PO DAILY 10/22/21 10/05/23 History tablet,extended release aspirin 81 mg tablet,delayed 81 mg PO DAILY 10/22/21 10/05/23 History release (Adult Low Dose Aspirin) zinc 50 mg tablet 50 mg PO DAILY 10/22/21 10/05/23 History tizanidine 2 mg tablet See Rx Instructions .Route 01/31/22 10/05/23 Rx .COMPLEX #90 tabs semaglutide 1 mg/dose (4 mg/3 mL) 1 mg (0.75 mL) subcut WEEKLY #9 mL 07/15/22 10/05/23 Rx subcutaneous pen injector (Ozempic) blood sugar diagnostic (OneTouch #200 ea 12/02/22 10/05/23 Rx Verio test strips) semaglutide 2 mg/dose (8 mg/3 mL) 2 mg (0.75 mL) subcut WEEKLY #9 mL 02/04/23 10/05/23 Rx subcutaneous pen injector (Ozempic) chlorhexidine gluconate 0.12 % 15 ml buccal BID #118 mL 02/09/23 10/05/23 Rx mouthwash cetirizine 10 mg tablet 10 mg PO DAILY #90 tabs 03/12/23 10/05/23 Rx metronidazole 500 mg tablet 500 mg PO QID #40 tabs 03/25/23 10/05/23 Rx albuterol sulfate 90 mcg/actuation 2 inh inhalation Q4H PRN shortness 04/27/23 10/05/23 Rx aerosol inhaler (ProAir HFA) of breath or wheezing #8.5 grams hydrochlorothiazide 25 mg tablet 25 mg PO DAILY #90 tabs 06/18/23 10/05/23 Rx solifenacin 10 mg tablet (Vesicare) 10 mg PO DAILY #90 tabs 06/26/23 10/05/23 Rx losartan 50 mg tablet 50 mg PO DAILY #90 tabs 07/02/23 10/05/23 Rx atorvastatin 20 mg tablet (Lipitor) 20 mg PO QHS #90 tabs 08/07/23 10/05/23 Rx nystatin 100,000 unit/gram topical 1 applic topical PRN PRN RASH #30 08/07/23 10/05/23 Rx powder (Nystop) grams triamcinolone acetonide 0.1 % 1 applic topical QID #80 grams 08/19/23 10/05/23 Rx topical cream mirtazapine 15 mg tablet 15 mg PO HS #90 tabs 09/08/23 Rx meloxicam 15 mg tablet 15 mg PO DAILY #90 tabs 09/17/23 Rx pantoprazole 40 mg tablet,delayed 40 mg PO DAILY #90 tabs 09/17/23 Rx release pilocarpine HCl 5 mg ta
[2023-11-16] MEDS: LACTATED RINGERS 1,000 ML 150 ML IV CONT (12:46)
--- NOTE | 2023-11-16 13:29 | SUR.OPER ---
EGD: [id number] COLON: Start 1325
--- NOTE | 2023-11-16 14:35 | PM.IMPN ---
Progress Note: A&P Assessment and Plan (1) Acute blood loss anemia: Code(s): D62 - Acute posthemorrhagic anemia Status: Acute (2) Rectal bleeding: Code(s): K62.5 - Hemorrhage of anus and rectum Status: Acute (3) Mixed hyperlipidemia: Code(s): E78.2 - Mixed hyperlipidemia Status: Acute (4) Other specified diabetes mellitus without complications: Code(s): E13.9 - Other specified diabetes mellitus without complications Status: Acute (5) Major depressive disorder, single episode, unspecified: Code(s): F32.9 - Major depressive disorder, single episode, unspecified Status: Acute (6) Fibromyalgia: Code(s): M79.7 - Fibromyalgia Status: Acute (7) Irritable bowel syndrome with diarrhea: Code(s): K58.0 - Irritable bowel syndrome with diarrhea Status: Acute (8) Diverticulosis: Code(s): K57.90 - Diverticulosis of intestine, part unspecified, without perforation or abscess without bleeding Status: Acute (9) Essential (primary) hypertension: Code(s): I10 - Essential (primary) hypertension Status: Acute Plan 68-year-old female presenting with rectal bleeding. Patient states that she woke up 2 nights ago and had an episode of bright red bloody diarrhea. States that she had some abdominal discomfort prior to the episode which then resolved after the bowel movement. She then felt fine until tonight when she again woke up from sleep with some abdominal cramping and the urge to defecate. She again had bloody diarrhea, states that is now maroon. States that she had an episode of lightheadedness earlier that caused her to lose her balance and fall. Did not strike her head or lose consciousness. Currently she denies complaints. States that she had a colonoscopy a few years ago and had 1 polyp removed. findings of diverticulosis and internal hemorrhoids were also there. No infectious symptoms. No further complaints. bloody diarrhea: CT abdomen is negative. History of diverticulosis. Likely diverticular bleed. Monitor H&H. Transfuse p.r.n.GI consulted. For remote possibility of upper GI bleeding placed on Protonix. EGD 11/16/2023: Hiatal hernia and gastritis mildly dysmetric change biopsies taken Colonoscopy 11/16/2023: Diverticulosis with no few small size internal hemorrhoids noted. Acute blood loss anemia symptomatic with Hypotension and fall: transfuse p.r.n. Fall likely due to orthostasis History of hypertension hold blood pressure medication History of Anxiety depression Hyperlipidemia History of rectal polyp DVT prophylaxis SCDs Code status full code Subjective Date/time seen: 11/16/23 14:35 Interval history: No overnight events. Still having brown stool. Going for EGD and colonoscopy today. No more bloody diarrhea. Blood pressure adequate. Review of Systems Review of Systems: All systems reviewed & are unremarkable except as noted in HPI and below Exam Narrative: GENERAL: Nontoxic, no acute distress, pleasant cooperative HEAD: Normocephalic, atraumatic. EYES: PERRLA and EOMI. ENT: Grossly unremarkable NECK: Supple. CHEST: Clear to auscultation. No respiratory distress. HEART: Regular rate and rhythm ABDOMEN: Soft, nontender, no guarding or rebound EXTREMITIES: Normal range of motion. SKIN: Warm, dry, no rash. NEURO: No focal deficits. Alert and oriented x3. PSYCH: Normal mood and affect. Objective Data Vital Signs Vital Signs: Vital Signs - 24 hr 11/15/23 15:11 11/15/23 16:00 11/15/23 16:00 Temperature 97.7 F 98.1 F Pulse Rate 99 90 76 Respiratory Rate 18 20 Blood Pressure 97/45 L 93/74 L Pulse Oximetry 95 97 Oxygen Delivery 11/15/23 16:00 11/15/23 18:00 11/15/23 19:59 Temperature 98.7 F Pulse Rate 65 65 69 Respiratory Rate 18 Blood Pressure 115/59 L Pulse Oximetry 97 Oxygen Delivery Room Air 11/15/23 20:00 11/15/23 20:00 11/15/23
--- NOTE | 2023-11-16 21:06 | PC.NURSE ---
Patient's home meds are confirmed. Belen Pond notified. Also notified Belen that patient states she is refusing all of those medications because she doesn't want the hospital bill for them.
[2023-11-17 04:57] LABS: Basophils Percent Auto 0.3 % (0.2-1.2); Eosinophils Absolute Auto 0.2 K/mm3 (0-0.3); Hematocrit 23.2 % (37.0-47.0); Hemoglobin 7.7 g/dL (12.0-15.0); Immature Granulocyte Absolute 0.02 K/mm3 (0.00-0.031); Immature Granulocyte Percent A 0.3 % (0-0.5); Lymphocytes Absolute Auto 1.78 K/mm3 (0.9-3.2); Lymphocytes Percent Auto 29.9 % (18.3-44.2); Mean Corpuscular HGB Conc 33.2 g/dl (32-36); Mean Corpuscular Hemoglobin 30.7 pg (26-34); Mean Corpuscular Volume 92.4 fl (80-100); Mean Platelet Volume 12.2 fl (7.4-10.4); Monocytes Absolute Auto 0.5 K/mm3 (0.1-0.6); Monocytes Percent Auto 9.1 % (2.6-8.5); Neutrophils Absolute Auto 3.4 K/mm3 (1.3-6.7); Neutrophils Percent Auto 57.4 % (45.5-73.1); Platelet Count Result 123 k/mm3 (150-375); Red Blood Count 2.51 M/mm3 (4.2-5.4); Red Cell Distribution Width 14.3 % (11.5-14.5)
[2023-11-17 05:12] LABS: Alanine Aminotransferase 13 U/L (6-35); Albumin Level 2.5 g/dL (3.5-5.1); Alkaline Phosphatase 54 U/L (38-126); Anion Gap 3 mmol/L (4-12); Aspartate Amino Transferase 18 U/L (14-36); Bilirubin,Total 0.1 mg/dL (0.2-1.3); Blood Urea Nitrogen 16 mg/dL (7-17); Calcium 7.9 mg/dL (8.4-10.2); Carbon Dioxide 26 mmol/L (22-30); Chloride 108 mmol/L (98-107); Estimated CRCL calculation 56 ml/min; Estimated Glomerular Filt Rate > 60; Glucose 105 mg/dL (65-110); Potassium 3.4 mmol/L (3.4-5.0); Sodium 137 mmol/L (137-145)
[2023-11-17 07:34] VITALS: BP 112/52; PULSE 79; RESP 16; TEMP 36.3; O2SAT 98
[2023-11-17] MEDS: PANTOPRAZOLE 40 MG TABLET PO (08:38)
--- NOTE | 2023-11-17 08:49 | WPDANESPN ---
Anes - Prog Note Post-Op Date/Time: 11/17/23 08:49 Cardiovascular status: normal Respiratory status: normal Airway patency: baseline Mental status: baseline Post-Op hydration status: normal Vital Signs: Last Vital Signs Temp 36.3 C L 11/17/23 07:34 Pulse 79 11/17/23 07:34 Resp 16 11/17/23 07:34 BP 112/52 L 11/17/23 07:34 Pulse Ox 98 11/17/23 07:34 O2 Del Method Room Air 11/16/23 19:51 Pain Score (VAS): 0 I/O: Intake & Output 11/16/23 11/17/23 11/17/23 23:59 07:59 15:59 Intake Total 720 550 Output Total 850 Balance -130 550 Laboratory Tests 11/17/23 04:43 11/17/23 04:43 11/16/23 11/17/23 10:39 04:43 WBC 6.0 RBC 2.51 L Hgb 8.2 L 7.7 L Hct 25.1 L 23.2 L MCV 92.4 MCH 30.7 MCHC 33.2 RDW 14.3 Plt Count 123 L MPV 12.2 H Immature Gran % (Auto) 0.3 Neut % (Auto) 57.4 Lymph % (Auto) 29.9 Bucks % (Auto) 9.1 H Eos % (Auto) 3.0 Baso % (Auto) 0.3 Lymph # (Auto) 1.78 Bucks # (Auto) 0.5 Eos # (Auto) 0.2 Baso # (Auto) 0.0 Abs Immat Gran (auto) 0.02 Absolute Neuts (auto) 3.4 Absolute Nucleated RBC 0.000 Nucleated RBC % 0.0 Sodium 137 Potassium 3.4 Chloride 108 H Carbon Dioxide 26 Anion Gap 3 L BUN 16 Creatinine 0.80 Estim Creat Clear Calc 56 Estimated GFR > 60 Glucose 105 Calcium 7.9 L Magnesium 2.0 Total Bilirubin 0.1 L AST 18 ALT 13 Alkaline Phosphatase 54 Total Protein 5.0 L Albumin 2.5 L Post-procedural complaints: none Patient Feedback: Patient satisfied with anesthetic care.
--- NOTE | 2023-11-17 11:34 | PM.DS ---
DS: Admitting Diagnosis Discharge Date 11/17/2023 Admitting Diagnosis Bloody diarrhea DS: Discharge Diagnosis Discharge Diagnosis (1) Acute blood loss anemia: Code(s): D62 - Acute posthemorrhagic anemia Status: Acute (2) Rectal bleeding: Code(s): K62.5 - Hemorrhage of anus and rectum Status: Acute (3) Mixed hyperlipidemia: Code(s): E78.2 - Mixed hyperlipidemia Status: Acute (4) Other specified diabetes mellitus without complications: Code(s): E13.9 - Other specified diabetes mellitus without complications Status: Acute (5) Major depressive disorder, single episode, unspecified: Code(s): F32.9 - Major depressive disorder, single episode, unspecified Status: Acute (6) Fibromyalgia: Code(s): M79.7 - Fibromyalgia Status: Acute (7) Irritable bowel syndrome with diarrhea: Code(s): K58.0 - Irritable bowel syndrome with diarrhea Status: Acute (8) Diverticulosis: Code(s): K57.90 - Diverticulosis of intestine, part unspecified, without perforation or abscess without bleeding Status: Acute (9) Essential (primary) hypertension: Code(s): I10 - Essential (primary) hypertension Status: Acute DS: Summary Hospital Course Hospital Course: This is a 68-year-old female presenting with rectal bleeding. Patient states that she woke up 2 nights ago and had an episode of bright red bloody diarrhea. States that she had some abdominal discomfort prior to the episode which then resolved after the bowel movement. She then felt fine until tonight when she again woke up from sleep with some abdominal cramping and the urge to defecate. She again had bloody diarrhea, states that is now maroon. States that she had an episode of lightheadedness earlier that caused her to lose her balance and fall. Did not strike her head or lose consciousness. Currently she denies complaints. States that she had a colonoscopy a few years ago and had 1 polyp removed. findings of diverticulosis and internal hemorrhoids were also there. No infectious symptoms. No further complaints. bloody diarrhea: CT abdomen is negative. History of diverticulosis. Likely diverticular bleed. Monitor H&H. Transfuse p.r.n.GI consulted. For remote possibility of upper GI bleeding placed on Protonix. EGD 11/16/2023: Hiatal hernia and gastritis mildly erythematous change biopsies taken. Colonoscopy 11/16/2023: Diverticulosis with no few small size internal hemorrhoids noted. No further bloody diarrhea during the hospital stay Acute blood loss anemia symptomatic with hypotension and fall needing blood transfusion x2 during the hospital stay Hypotension and fall: transfuse p.r.n. Fall likely due to orthostasis History of hypertension hold blood pressure medication at discharge resume as outpatient basis History of Anxiety depression Hyperlipidemia History of rectal polyp DVT prophylaxis SCDs Code status full code Time Spent with Patient Time attestation: Total time spent providing and/or coordinating discharge services: 35 minutes Exam Narrative: GENERAL: Nontoxic, no acute distress, pleasant cooperative HEAD: Normocephalic, atraumatic. EYES: PERRLA and EOMI. ENT: Grossly unremarkable NECK: Supple. CHEST: Clear to auscultation. No respiratory distress. HEART: Regular rate and rhythm ABDOMEN: Soft, nontender, no guarding or rebound EXTREMITIES: Normal range of motion. SKIN: Warm, dry, no rash. NEURO: No focal deficits. Alert and oriented x3. PSYCH: Normal mood and affect. DS: Data Data Completed and Pending Completed studies during hospitalization: Pending at discharge 11/16/23 13:22 Surgical [PTH] Routine Labs on day of discharge: Labs from last 24 hours 11/17/23 04:43 WBC 6.0 RBC 2.51 L Hgb 7.7 L Hct 23.2 L MCV 92.4 MCH 30.7 MCHC 33.2 RDW 14.3 Plt Count 123 L MPV 12.2 H Immature Gran % (Auto) 0.3 Neut
== END 2023-11-17 12:14 | disposition home or self-care (01) ==
LOC: ANHED 04:38 → ANHIMU 08:24
PROVIDERS: Internal Medicine Gastroenterology; Admitting Provider Internal Medicine; Emergency Provider Emergency Medicine; PCP Family Medicine; Visit Provider Internal Medicine
PROC: 0DJ08ZZ Inspection of Upper Intestinal Tract, Via Natural or Artificial Opening Endoscopic (ICD-10-PCS; CPT 43235; principal; 2023-11-16 15:00)
DX: D62 Acute posthemorrhagic anemia (principal); K62.5 Hemorrhage of anus and rectum; K58.0 Irritable bowel syndrome with diarrhea; K57.30 Diverticulosis of large intestine without perforation or abscess without bleeding; K64.8 Other hemorrhoids; K44.9 Diaphragmatic hernia without obstruction or gangrene; K29.50 Unspecified chronic gastritis without bleeding; I10 Essential (primary) hypertension; E78.2 Mixed hyperlipidemia; M79.7 Fibromyalgia; F41.8 Other specified anxiety disorders; F32.9 Major depressive disorder, single episode, unspecified; E11.9 Type 2 diabetes mellitus without complications; Z87.891 Personal history of nicotine dependence; Z79.82 Long term (current) use of aspirin; Z79.84 Long term (current) use of oral hypoglycemic drugs; Z79.85 Long-term (current) use of injectable non-insulin antidiabetic drugs; Z79.51 Long term (current) use of inhaled steroids
CPT/HCPCS: 45378; 43239; 36415; 36430; 74177; 80053; 81003; 83605; 83690; 83735; 85014; 85018; 85025; 85610; 85730; 86850; 86900; 86901; 86923; 88305; 96361; 96374; 99285; A9270; G0378; J2405; J2470; J2704; J7030; J7050; J7120; P9016; Q9967

== ENCOUNTER 2024-01-01 10:45 | Outpatient (CLI) | payer MEDICARE, SELFPAY ==
[2024-01-01 16:51] LABS: Basophils Percent Auto 0.4 % (0.2-1.2); Eosinophils Absolute Auto 0.1 K/mm3 (0-0.3); Eosinophils Percent Auto 2.2 % (0-4.4); Hematocrit 39.6 % (37.0-47.0); Hemoglobin 12.3 g/dL (12.0-15.0); Immature Granulocyte Absolute 0.01 K/mm3 (0.00-0.031); Immature Granulocyte Percent A 0.2 % (0-0.5); Lymphocytes Absolute Auto 2.07 K/mm3 (0.9-3.2); Lymphocytes Percent Auto 37.7 % (18.3-44.2); Mean Corpuscular HGB Conc 31.1 g/dl (32-36); Mean Corpuscular Hemoglobin 30.3 pg (26-34); Mean Corpuscular Volume 97.5 fl (80-100); Mean Platelet Volume 12.3 fl (7.4-10.4); Monocytes Absolute Auto 0.6 K/mm3 (0.1-0.6); Monocytes Percent Auto 10.7 % (2.6-8.5); Neutrophils Absolute Auto 2.7 K/mm3 (1.3-6.7); Neutrophils Percent Auto 48.8 % (45.5-73.1); Platelet Count Result 203 k/mm3 (150-375); Red Blood Count 4.06 M/mm3 (4.2-5.4); Red Cell Distribution Width 12.3 % (11.5-14.5); White Blood Count 5.5 K/mm3 (4.5-10.0)
[2024-01-01 17:22] LABS: Alanine Aminotransferase 31 U/L (6-35); Albumin Level 3.9 g/dL (3.5-5.1); Alkaline Phosphatase 89 U/L (38-126); Anion Gap 7 mmol/L (4-12); Aspartate Amino Transferase 42 U/L (14-36); Bilirubin,Total 0.3 mg/dL (0.2-1.3); Blood Urea Nitrogen 16 mg/dL (7-17); Calcium 9.2 mg/dL (8.4-10.2); Carbon Dioxide 31 mmol/L (22-30); Chloride 103 mmol/L (98-107); Cholesterol 140 mg/dL (0-200); Estimated Glomerular Filt Rate > 60; Glucose 104 mg/dL (65-110); HDL Direct 43 mg/dL; Potassium 4.7 mmol/L (3.4-5.0); Sodium 141 mmol/L (137-145); Triglycerides 153 mg/dL (<150)
[2024-01-01 17:27] LABS: LDL Cholesterol Direct 66 mg/dL
[2024-01-01 17:46] LABS: Hepatitis C Virus Antibody Negative (Negative)
[2024-01-01 17:49] LABS: Hemoglobin A1C 4.9 % (<5.7)
== END 2024-01-01 10:46 | disposition home or self-care (01) ==
LOC: ANHGOSHLAB 10:46
PROVIDERS: PCP Family Medicine; Visit Provider Family Medicine
DX: D62 Acute posthemorrhagic anemia (principal); E66.9 Obesity, unspecified; E78.2 Mixed hyperlipidemia; M79.7 Fibromyalgia; E11.9 Type 2 diabetes mellitus without complications; Z11.59 Encounter for screening for other viral diseases
CPT/HCPCS: 36415; 80053; 80061; 83036; 85025; 86803

== ENCOUNTER 2024-02-29 10:25 | Outpatient (CLI) | payer MEDICARE, SELFPAY | END 2024-02-29 10:26 | disposition home or self-care (01) | LOC: ANHGOSHLAB 10:26 | PROVIDERS: PCP Family Medicine; Visit Provider Nurse Practitioner Family | DX: F41.9 Anxiety disorder, unspecified (principal); F43.29 Adjustment disorder with other symptoms; E78.2 Mixed hyperlipidemia; M79.7 Fibromyalgia; E11.9 Type 2 diabetes mellitus without complications | CPT/HCPCS: 36415; 84443 ==

== ENCOUNTER 2024-06-17 07:24 | Outpatient (CLI) | payer MEDICARE, SELFPAY ==
--- NOTE | ~2024-06-17 | DEXA_ITS ---
Bone Density Report Name: MAZIN DOBSON Age: 68 Sex: Female Ethnicity: White Date of : 1955 Indication: monitoring treatment; height loss; prior fracture; cancer; asthma or emphysema; Referring Provider: JUAN PABLO HODGES Study: Bone densitometry was performed. Exam Date: June 17, 2024 Accession number: [id number] Bone Density: Region BMD T-score Z-score Classification AP Spine(L1-L4) 1.068 0.2 2.1 Normal Femoral Neck (Right) 0.777 -0.7 1.0 Normal Total Hip (Right) 0.705 -1.9 -0.6 Osteopenia World Health Organization criteria for BMD impression classify patients as: Normal (T-score at or above -1.0), Osteopenia (T-score between -1.0 and -2.5), or Osteoporosis (T-score at or below -2.5). 10-year Fracture Risk: FRAX not reported because: Prior hip or vertebral fracture Treated for osteoporosis Previous Exams: Region Exam Age BMD T-score BMD Change BMD Change Date g/cm2 vs Baseline vs Previous AP Spine (L1-L4) 06/17/2024 68 1.068 0.2 -0.013 (-1.2%) -0.013 (-1.2%) 02/03/2022 66 1.080 0.3 Total Hip(Right) 06/17/2024 68 0.705 -1.9 -0.126 (-15.2% -0.126 (-15.2% 02/03/2022 66 0.831 -0.9 *Denotes significance at 95% confidence level, LSC for AP Spine = 0.022 g/cm2, LSC for Total Hip = 0.027 g/cm2 Clinical Information Provided by Patient: Have had a previous hip or vertebral fracture Has had a low trauma fracture Is being treated for osteoporosis Has used the following medications: Vitamin D, Calcium Has the following medical conditions: Asthma or Emphysema, Cancer Patient maximum height was 67.5 Menopause Age: 49 Drinks caffeinated beverages Onset of menses at age 12 Number of children 2 Impression: The patient has low bone mass, based on the Right Total Hip T-score. The patient has risk factors, including: previous fracture. The BMD for the Total Hip(Right) decreased, changing by -15.2% since the last DXA exam. Discussion: SIGNIFICANT BONE LOSS OBSERVED. Adherence to therapy (including calcium and vitamin D intake) should be assessed. If compliance is not a factor, review management and exclusion of secondary causes of bone loss. It is important to ask patients whether they are taking their medications and to encourage continued and appropriate compliance with their osteoporosis therapies to reduce fracture risk. It is also important to review their risk factors and encourage appropriate calcium and vitamin D intakes, exercise, fall prevention and other lifestyle measures. Follow-Up: Consider a repeat BMD and Vertebral Fracture Assessment (VFA) exam in 2 years or sooner if medically necessary, to reassess this patient's status. Reported by: GIN lipscomb 06/17/2024 8:10:00 AM. Reviewed, dictated and finalized at location [facility]
--- OUTSIDE RECORDS SUMMARY | 2024-06-17 07:27 | XMS_ITS | Clinical Summary ---
Author Organization [facility] Address [address] [place] [address] Care Team Providers Care Vice President Of Advertising Name Role Phone Unavailable Primary Care Provider Unavailabl e Source Comments [facility],non-owned Affiliates and Associated Physician Practices is amultiple site organization consisting of ambulatory clinics and hospital sitesin [place], [place], [place] and [place]. This disclosure is being madepursuant to the Care Everywhere program and may not contain all information available regarding this patient. Last updated 17.[facility] [employer] Social History Tobacco Use Types Packs/Day Years Used Date Smoking Tobacco: Never Assessed Sex and Gender Information Value Date Recorded Sex Assigned at Not on file Gender Identity Not on file Sexual Orientation Not on file Plan of Treatment Health Maintenance Due Date Last Done Comments BONE DENSITY TESTING 1955 COLOGUARD (AGES 45-75) - COL ON CA SCREENING 1955 COLON MONITORING 1955 COLONOSCOPY - COLON CA SCREENING 1956 CT COLONOGRAPHY - COLON CA SCREENING 1955 Colorectal Cancer Screening 1955 FIT - COLON CA SCREENING 1955 FLEX SIG - COLON CA SCREENING 1955 LIPID TESTING 1955 MAMMOGRAM 1955 HEPATITIS C SCREENING 08/23/1974 DTAP/TDAP/TD VACCINES (1 - Tdap) 08/28/1975 PNEUMOCOCCAL VACCINE 50+ (1 of 1 - PCV) 2006 ZOSTER VACCINE (1 of 2) 2006 COVID-19 VACCINE ( - 2023-2 5 season) 2023 DEPRESSION SCREENING 03/09/2024 MEDICARE AWV CALENDAR YEAR 2024 INFLUENZA VACCINE (Season Ended) 2024 Respiratory Syncytial Virus (RSV) Vaccine Pt: or over 60 yrs (1 - 1-dose 75+ series) 08/28/2031 HEPATITIS B VACCINE Aged Out No longe r eligible based on patient's age to complete this topic HIB VACCINE Aged Out No longer eligi ble based on patient's age to complete this topic HPV VACCINE Aged Out No longer eligi ble based on patient's age to complete this topic MENINGOCOCCAL (Group B) VACC INE SHARED DECISION-MAKING Aged Out No longer eligibl e based on patient's age to complete this topic MENINGOCOCCAL GROUPS A/C/Y/W VACCINE Aged Out No longer eligible b ased on patient's age to complete this topic
--- OUTSIDE RECORDS SUMMARY | 2024-06-17 07:27 | XMS_ITS | Clinical Summary ---
Author Organization [facility] Address [address] [place] [address] Care Team Providers Care Vp Name Role Phone Unavailable Primary Care Provider Unavailabl e Social History Tobacco Use Types Packs/Day Years Used Date Smoking Tobacco: Never Assessed Comments Unknown Sex and Gender Information Value Date Recorded Sex Assigned at Not on file Legal Sex Female 5:31 PM CDT Gender Identity Not on file Sexual Orientation Not on file Plan of Treatment Health Maintenance Due Date Last Done Comments Colorectal Cancer Screening Colonoscopy (10 Years) 1955 Hepatitis C 1974 DTaP, Tdap and Td Vaccines ( 1 - Tdap) 08/28/1975 Mammogram Screening 1996 Zoster Vaccines (1 of 2) 2006 Dexa Scan (General) 2021 Pneumococcal Vaccine: 65+ Ye ars (1 of 1 - PCV) 2021 COVID-19 Vaccine ( - 2023-2 5 season) 2023 RSV Immunization or 60+ Years (1 - 1-dose 75+ series) 08/28/2031 Meningococcal B Vaccine Aged Out No l onger eligible based on patient's age to complete this topic Meningococcal Vaccine Aged Out No richard angely eligible based on patient's age to complete this topic RSV Immunizations Under 20 Months Aged Out No longer eligible based on patient's age to complete this topic
== END 2024-06-17 07:25 | disposition home or self-care (01) ==
PROVIDERS: PCP Family Medicine; Visit Provider Nurse Practitioner Family
DX: Z78.0 Asymptomatic menopausal state (principal); M85.851 Other specified disorders of bone density and structure, right thigh
CPT/HCPCS: 77080

== ENCOUNTER 2024-07-05 08:54 | Outpatient (CLI) | payer MEDICARE, SELFPAY ==
--- OUTSIDE RECORDS SUMMARY | 2024-07-05 09:31 | XMS_ITS | Clinical Summary ---
Author Organization [facility] Address [address] [place] [address] Care Team Providers Care Marketing Compliance Manager Name Role Phone Unavailable Primary Care Provider [...] 1 - Tdap) 08/28/1975 Mammogram Screening 1996 Pneumococcal Vaccine: 50+ Ye ars (1 of 1 - PCV) 2006 Zoster Vaccines (1 of 2) 2006 Dexa Scan (General) 2021 COVID-19 Vaccine ( - 2023-2 5 [...]
--- OUTSIDE RECORDS SUMMARY | 2024-07-05 09:31 | XMS_ITS | Clinical Summary ---
Author Organization [facility] Address [address] [place] [address] Care Team Providers Care Internal Medicine Veterinary Technician Name Role Phone Unavailable Primary Care Provider Unavailabl e Source Comments [facility],non-owned Affiliates and Associated Physician Practices is amultiple site organization consisting of ambulatory clinics and hospital sitesin [place], [place], [place] and [place]. This disclosure is being madepursuant to the Care Everywhere program and may not contain all information available regarding this patient. Last updated 17.[facility] Social History Tobacco Use Types Packs/Day Years Used Date Smoking Tobacco: Never Assessed Comments Unknown Sex and Gender Information Value Date Recorded Sex Assigned at Not on file Legal Sex Female 6:24 PM DISPATCHER RADIO Gender Identity Not on file Sexual Orientation [...] on patient's age to complete this topic Insurance [facility] SELF PAY NO INSURANCE Member Subscriber Plan / Payer (Ef fective for All Dates) Name:Mazin Villalta Member ID:Not on file Relation to Subscriber:Not on file Name:MAZIN VILLALTA Subscriber ID:Not on file (Home) Address: [address] [place] [id number] Payer ID:Not on file Group ID:Not on file Type:Self Pay Address: [place], [place] UHC MANAGED MEDICARE ADV
[2024-07-05 13:53] LABS: Alanine Aminotransferase 18 U/L (6-35); Albumin Level 4.2 g/dL (3.5-5.1); Alkaline Phosphatase 95 U/L (38-126); Anion Gap 11 mmol/L (4-12); Aspartate Amino Transferase 39 U/L (14-36); Bilirubin,Total 0.4 mg/dL (0.2-1.3); Blood Urea Nitrogen 12 mg/dL (7-17); Calcium 9.3 mg/dL (8.4-10.2); Carbon Dioxide 26 mmol/L (22-30); Chloride 106 mmol/L (98-107); Cholesterol 148 mg/dL (0-200); Estimated Glomerular Filt Rate > 60; Glucose 92 mg/dL (65-110); HDL Direct 46 mg/dL; Sodium 143 mmol/L (137-145); Triglycerides 111 mg/dL (<150)
[2024-07-05 13:55] LABS: Basophils Percent Auto 0.6 % (0.2-1.2); Eosinophils Absolute Auto 0.1 K/mm3 (0-0.3); Eosinophils Percent Auto 1.7 % (0-4.4); Hematocrit 40.7 % (37.0-47.0); Hemoglobin 12.7 g/dL (12.0-15.0); Immature Granulocyte Absolute 0.01 K/mm3 (0.00-0.031); Immature Granulocyte Percent A 0.2 % (0-0.5); Immature Platelet Fraction Pct 8.7 % (0.9-11.2); Lymphocytes Absolute Auto 1.96 K/mm3 (0.9-3.2); Lymphocytes Percent Auto 41.3 % (18.3-44.2); Mean Corpuscular HGB Conc 31.2 g/dl (32-36); Mean Corpuscular Hemoglobin 29.8 pg (26-34); Mean Corpuscular Volume 95.5 fl (80-100); Monocytes Absolute Auto 0.4 K/mm3 (0.1-0.6); Monocytes Percent Auto 9.1 % (2.6-8.5); Neutrophils Absolute Auto 2.2 K/mm3 (1.3-6.7); Neutrophils Percent Auto 47.1 % (45.5-73.1); Platelet Count Result 188 k/mm3 (150-375); Red Blood Count 4.26 M/mm3 (4.2-5.4); White Blood Count 4.8 K/mm3 (4.5-10.0)
[2024-07-05 14:05] LABS: LDL Cholesterol Direct 58 mg/dL
[2024-07-05 14:31] LABS: Creatinine Urine 133.9 mg/dL
[2024-07-05 14:38] LABS: MALB Creatinine Ratio 10.7 mg/g (0-30); Microalbumin Urine Random 14.3 mg/L (0-16.7)
[2024-07-05 16:10] LABS: Hemoglobin A1C 5.3 % (<5.7)
== END 2024-07-05 08:55 | disposition home or self-care (01) ==
LOC: ANHGOSHLAB 08:56
PROVIDERS: PCP Family Medicine; Visit Provider Family Medicine
DX: D75.1 Secondary polycythemia (principal); E11.9 Type 2 diabetes mellitus without complications; F41.9 Anxiety disorder, unspecified; F32.9 Major depressive disorder, single episode, unspecified; K14.0 Glossitis
CPT/HCPCS: 36415; 80053; 80061; 82043; 83036; 84443; 85025; 85055

== ENCOUNTER 2024-09-01 09:27 | Outpatient (CLI) | payer MEDICARE, SELFPAY ==
--- NOTE | ~2024-09-01 | MMUS_ITS ---
EXAMINATION: MM diagnostic kaylin BI w cuauhtemoc, US breast LT limited HISTORY: Left nipple inversion and left nipple discharge TECHNIQUE: 3-D tomosynthesis images of the breasts were performed and synthetic 2-D images were gener ated. CAD analysis was submitted and interpreted. High resolution limited left breast ultrasound was performed. COMPARISON: 12/17/2021 and 09/01/2020 BREAST PARENCHYMAL COMPOSITION:Not Dense. There are scattered areas of fibroglandular density. FINDINGS: MAMMOGRAPHIC FINDINGS: Parenchymal pattern of the breasts is essentially unchanged. No suspicious mass lesion or distortion seen. No suspicious microcalcification. ULTRASOUND: Sonographic imaging of the left subareolar region demonstrates no solid or cystic lesion. Focally min imally dilated duct is present. No intraductal mass seen. IMPRESSION: Focal minimally dilated ducts in the left subareolar area without evidence of solid mass or intraduc kash mass. No overt evidence for malignancy. BI-RADS Category 2: Benign finding(s). Reviewed, dictated and finalized at location M. IMPRESSION: Focal minimally dilated ducts in the left subareolar area without evidence of solid mass or intraductal mass. No overt evidence for malignancy. BI-RADS Category 2: Benign finding(s).
== END 2024-09-01 09:28 | disposition home or self-care (01) ==
LOC: ANHIMG 09:31
PROVIDERS: PCP Family Medicine; Visit Provider Family Medicine
DX: N64.59 Other signs and symptoms in breast (principal)
CPT/HCPCS: 76642; 77062; 77066; G0279

== ENCOUNTER 2024-12-22 12:29 | Outpatient (CLI) | payer MEDICARE, SELFPAY ==
--- NOTE | ~2024-12-22 | XR_ITS ---
EXAMINATION: XR hip RT 2V w AP pelvis, 12/22/2024 12:45 CDT HISTORY: hip pain/pop COMPARISON: No comparisons available. Findings: No acute fracture or malalignment. Left arthroplasty intact. Moderate right-sided degenerative changes Soft tissues unremarkable. Impression: No acute fracture or malalignment. Reviewed, dictated and finalized at location P. Impression: No acute fracture or malalignment.
--- OUTSIDE RECORDS SUMMARY | 2024-12-22 14:05 | XMS_ITS | Clinical Summary ---
Author Organization [facility] Address [address] [place] [address] Care Team Providers Care Ball Points Inspector Name Role Phone Unavailable Primary Care Provider [...] COVID-19 Vaccine ( - 2023-2 5 season) 2024 Influenza Adult (#1) 2024 RSV Immunization or 60+ Years (1 - [...]
--- OUTSIDE RECORDS SUMMARY | 2024-12-22 14:05 | XMS_ITS | Clinical Summary ---
Author Organization [facility] Address [address] [place] [address] Care Team Providers Care Clock And Watch Hands Mounter Name Role Phone Unavailable Primary Care Provider Unavailabl e Source Comments [facility],non-owned Affiliates and Associated Physician Practices is amultiple site organization consisting of ambulatory clinics and hospital sitesin [place], [place], [place] and [place]. This disclosure is being madepursuant to the Care Everywhere program and may not contain all information available regarding this patient. Last updated 17.[facility] Social History Tobacco Use Types Packs/Day Years Used Date Smoking Tobacco: Never Assessed Comments Unknown Sex and Gender Information Value Date Recorded Sex Assigned at Not on file Legal Sex Female 6:24 PM DIAMOND SETTER Gender Identity Not on file Sexual Orientation [...] 2006 ZOSTER VACCINE (1 of 2) 2006 DEPRESSION SCREENING 03/09/2024 MEDICARE AWV CALENDAR YEAR 2024 COVID-19 VACCINE (1 - 2023-2 5 season) 2024 INFLUENZA VACCINE (#1) 2024 Respiratory Syncytial Virus (RSV) Vaccine Pt: [...] patient's age to complete this topic Insurance [facility] SELF PAY NO INSURANCE Member Subscriber Plan / Payer (Ef fective for All Dates) Name:Mazin Villalta Member ID:Not on file Relation to Subscriber:Not on file Name:MAZIN VILLALTA Subscriber ID:Not on file (Home) Address: [address] [place] [phone] Payer ID:Not on file Group ID:Not on file Type:Self Pay Address: [place], [place] UHC MANAGED MEDICARE ADV
== END 2024-12-22 12:30 | disposition home or self-care (01) ==
PROVIDERS: PCP Family Medicine; Visit Provider Family Medicine
DX: S73.004A Unspecified dislocation of right hip, initial encounter (principal); X58.XXXA Exposure to other specified factors, initial encounter
CPT/HCPCS: 73502